=== PATIENT | female | born 1960 | race Caucasian/White ===

== ENCOUNTER 2019-05-25 19:43 | Observation (INO) ==
[2019-05-25] MEDS ORDERED: ONDANSETRON 4 MG/2 ML VIAL IV ONE (19:50)
[2019-05-25] MEDS ORDERED: LACTATED RINGERS 1,000 ML IV ONE (19:50)
[2019-05-25] MEDS ORDERED: HYDROmorphone 2 MG/ML VIAL IV SCH ×3 (20:00→23:45)
[2019-05-25 21:15] LABS: Appearance,Urine HAZY; Bacteria,Urine 0 /hpf (0); Bilirubin,Urine NEG (NEG); Color,Urine YELLOW; Culture Indicated,Urine NO; Glucose,Urine (UA) NEGATIVE (NEG); Ketones,Urine NEG (NEG); Leukocyte Esterase,Urine 500 /uL (NEG); Mucus,Urine MOD /hpf (0); Nitrate,Urine POS (NEG); Protein,Urine 100 mg/dL (NEG); Urine Blood >=1.0 mg/dL (<0.03); Urine RBC > 182 /hpf (0-1); Urine Squamous Epithelial Cell 7 /hpf (0-4); Urine Transitional Epi Cells 1 /hpf (0-2); Urine WBC > 182 /hpf (0-4)
[2019-05-25 21:19] LABS: Basophils # (Auto) 0.05 K/mcL (0.00-0.30); Basophils % (Auto) 0.6 % (0.0-2.0); Eosinophils # (Auto) 0.23 K/mcL (0.00-0.70); Granulocytes % (Auto) 58.4 % (38.0-78.0); Hematocrit 40.5 % (34.1-44.9); Hemoglobin 12.9 g/dL (11.2-15.7); Lymphocytes # (Auto) 2.29 K/mcL (1.50-4.80); Lymphocytes % (Auto) 29.4 % (15.5-49.0); Mean Cell Volume 86.2 fL (80.0-100.0); Mean Corpuscular HGB Conc 31.9 g/dL (31.0-36.0); Mean Platelet Volume 9.5 fL (7.4-10.4); Monocytes # (Auto) 0.67 K/mcL (0.10-0.90); Monocytes % (Auto) 8.6 % (1.0-12.0); Platelet Count 319 K/mcL (140-440); Red Cell Distribution Width 14.4 % (11.5-14.5); WBC 7.8 K/mcL (4.50-11.00)
[2019-05-25 21:31] LABS: ALT/SGPT 11 U/l (0-40); AST/SGOT 18 U/l (0-37); Albumin 3.6 gm/dL (3.2-5.2); Albumin/Globulin Ratio 1.2 (1.0-2.3); Alkaline Phosphatase 143 U/L (39-117); Bilirubin,Total 0.2 mg/dL (0.0-1.0); Blood Urea Nitrogen 16 mg/dl (6-20); Calcium 9.4 mg/dl (8.6-10.4); Carbon Dioxide 20 mmol/L (22-30); Chloride 103 mmol/L (96-108); Glomerular Filtration Rate 101; Glucose 144 mg/dL (70-105)
[2019-05-25] MEDS ORDERED: LEVOFLOXACIN 750 MG/150 ML BAG IV ONE (22:16)
--- NOTE | 2019-05-25 23:37 | Emergency Department Note ---
Female Urogenital HPI - General Chief complaint: Flank Pain Stated complaint: flank pain Time Seen by Provider: 05/25/19 19:49 Source: patient Mode of arrival: ambulatory Limitations: no limitations - History of Present Illness HPI Narrative: This patient has been having some right flank and right lower quadrant pain today. She does have a history of kidney stones and renal insufficiency. She has a number of admissions to the ER for adrenal insufficiency abdominal pain but she thinks this is different today. Her urine dip does show both blood and leukocytes. She is also has slight nausea and diarrhea - Related Data Home Medications Medication Instructions Recorded Confirmed erenumab-aooe 140 mg/mL 140 mg SUB-Q QMONTH 12/24/18 05/26/19 subcutaneous auto-injector omeprazole 40 mg capsule,delayed 40 mg PO TID 12/24/18 05/26/19 release predniSONE [Prednisone] 5 mg PO TID 12/25/18 05/26/19 Cyanocobalamin (Vitamin B-12) 500 mcg PO DAILY 05/26/19 05/26/19 [Vitamin B12] DULoxetine HCL [Cymbalta] 40 mg PO QDAY 05/26/19 05/26/19 Nystatin 1 applic TOPICAL BID PRN 05/26/19 05/26/19 Sertraline [Zoloft] 50 mg PO QDAY 05/26/19 05/26/19 nystatin-triamcinolone 100,000 1 applic TOPICAL BID PRN 05/26/19 05/26/19 unit/g-0.1 % topical cream rOPINIRole HCL [Requip] 1 mg PO HS 05/26/19 05/26/19 Previous Rx's Medication Instructions Recorded potassium chloride 20 mEq 40 meq PO TID #180 tab 10/21/17 tablet,extended release(part/cryst) ondansetron 4 mg disintegrating 4 mg PO TID PRN #30 tab 03/11/18 tablet albuterol sulfate 90 mcg/actuation 1 puff INHALATION Q6H PRN #18 g 04/01/19 aerosol inhaler hydrocodone 10 mg-acetaminophen 1 tab PO Q4H PRN #168 tab 05/19/19 325 mg tablet Allergies Allergy/AdvReac Type Severity Reaction Status Date / Time ketorolac [From Toradol] Allergy Intermediate Hives Verified 05/25/19 19:45 NSAIDS (Non-Steroidal AdvReac Intermediate unknown Verified 05/26/19 03:42 Anti-Inflamma lorazepam AdvReac Mild Hallucinati Verified 05/25/19 19:45 ng morphine AdvReac Mild Rash Verified 05/26/19 00:36 scopolamine AdvReac Mild Hallucinati Verified 05/25/19 19:45 ng Tizanidine AdvReac Mild Hallucinati Verified 05/25/19 19:45 ng Review of Systems All systems ED: reviewed and negative except as stated. Past Medical History - Past Medical History [facility] Narrative: Medical History (Last Updated 05/03/19 @ 13:12 by Meaghan Ryan DO) Chronic pain (Chronic) Hypertension (Chronic) Hyperlipidemia (Chronic) Diabetes mellitus type 2 with complications (Chronic) Adrenal insufficiency (Chronic) SAVI (obstructive sleep apnea) (Chronic) Chronic obstructive lung disease (Chronic) Chronic abdominal pain (Chronic) Addisons disease (Chronic) Encounter for chronic pain management (Chronic) Pain in right hip (Chronic) Lumbar spinal stenosis (Chronic) Back pain (Chronic) Family history of leukemia (Chronic) Cervical cancer (Chronic) Insomnia, persistent (Chronic) Kidney stones (Chronic) Obesity (Chronic) Obsessive compulsive disorder (Chronic) Ovarian cancer (Chronic) Diabetic peripheral neuropathy (Chronic) Vitamin D deficiency (Resolved) Hiatal hernia (Chronic 09/02/15) Abdominal pain in female (Chronic) Migraine (Chronic) Anxiety (Chronic) GERD (gastroesophageal reflux disease) (Chronic) RLS (restless legs syndrome) (Chronic) Wellness examination (Chronic) Numbness and tingling in both hands (Chronic) Syncope and collapse (Chronic) Abdominal pain, RUQ (Resolved) Altered mental status, unspecified (Resolved) Atypical chest pain (Resolved) Atypical chest pain (Resolved) Body aches (Resolved) Bronchitis (Resolved) Marianne infection (Resolved) Dehydration (Resolved) Dizzy spells (Resolved) Family history of leukemia (Resolved) General weakness (Resolved) Headache (Resolved) Headache syndrome (Resolved) Hypercholesterolemia (Resolved) Hyperuricemia (Resolved) Hypokalemia (Resolved) Hypokalemia (Resolved) Hypokalemia (Resolved) Hypomagnesemia syndrome (Resolved) Kidney stone on right side (Resolved 09/02/15) Lumbago (Resolved) Migraine (Resolved) Migraine (Resolved) Migraine (Resolved) Migraine (Resolved) Migraine (Resolved) Migraine (Resolved) Migraine (Resolved) Migraine aura, persistent, intractable (Resolved) Migraine headache (Resolved) Migraine headache (Resolved) Migraine headache (Resolved) Migraines (Resolved) Nausea and vomiting (Resolved) Near syncope (Resolved) Neck pain (Resolved) Non-cardiac chest pain (Resolved) Occipital neuralgia of left side (Resolved) Photophobia (Resolved) Postmenopausal bleeding (Resolved) Stress (Resolved) Stress disorder, acute (Resolved) Tension headache (Resolved) UTI (urinary tract infection) (Resolved) Uterine malignant neoplasm (Resolved) Abdominal pain (Inactive) Past Surgical History (Last Updated 05/03/19 @ 13:12 by Meaghan Ryan DO) History of appendectomy (Chronic) History of colonoscopy (Chronic 07/03/18) History of cystoscopy (Chronic 09/15/15) History of lumbar fusion (Chronic 01/15/18) Hx of adenoidectomy (Chronic) Hx of cholecystectomy (Chronic) Hx of esophagogastroduodenoscopy (Chronic 10/17/17) Hx of gastric bypass (Chronic) Hx of hysterectomy (Chronic) Hx of lithotripsy (Chronic 03/09/14) Hx of tonsillectomy (Chronic) H/O gastric bypass (Resolved) H/O laparoscopy (Resolved) History of carpal tunnel surgery (Resolved) History of oophorectomy (Resolved) Hx of removal of cyst (Resolved) Family History (Last Reviewed 01/26/19 @ 07:54 by Meaghan Ryan DO) brother No problems noted. father No problems noted. mother No problems noted. uncle No problems noted. Father CVA (cerebral vascular accident) Heart disease Medical history: Reports: cancer, COPD, DM, hyperlipidemia, hypertension, kidney stones, migraine, other (nonobstructing kidney stones, history of adrenal insufficiency.). Denies: CVA, myocardial infarction, renal disease, TIA Psychiatric history: Reports: anxiety, depression LOTTERY MANAGER history: Reports: non-contributory Surgical history ED: Reports: appendectomy, cholecystectomy, hysterectomy, orthopedic, other - Social History smoking status: Former smoker Alcohol use: Reports: None Drug use: Reports: none Physical Exam Limitations: no limitations General appearance: alert Head: atraumatic Eye: Present: normal appearance ENT: Present: normal exam Neck: Present: normal inspection Chest: Present: normal inspection Respiratory: Present: normal lung sounds bilaterally Cardiovascular: Present: regular rate, normal rhythm, normal heart sounds Abdominal: Present: soft, tenderness. Absent: distention, guarding, rebound Abdominal tenderness: Present: RLQ, mild Back: Present: CVA tenderness (R) Neurological: Present: alert Psychiatric: Present: normal affect Skin: Present: warm, dry Course Vital Signs Temperature 97.3 F 05/25/19 19:43 Pulse Rate 114 H 05/25/19 19:43 Respiratory Rate 20 05/25/19 19:43 Blood Pressure 167/92 05/25/19 19:43 Pulse Oximetry (%) 100 05/25/19 19:43 Temperature 97.7 F 05/26/19 03:30 Pulse Rate 95 H 05/26/19 03:30 Respiratory Rate 05/26/19 03:30 Blood Pressure 110/69 05/26/19 03:30 Pulse Oximetry (%) 99 05/26/19 03:30 Urogenital-Female - MDM Narrative Medical decision making narrative: CT scan shows a 10 mm kidney stone at the UP junction with hydronephrosis. Urinalysis is worrisome for infection as well. She has had other kidney stones treated by Dr. Britton and I talked to him and will admit her to him. We did cover her for infection with Levaquin. - Lab Data Lab results reviewed: Yes I reviewed the patient's lab results. Result diagrams: 05/25/19 20:23 05/25/19 20:23 Lab Results 05/25/19 05/25/19 05/25/19 Range/Units 20:21 20:23 20:23 WBC 7.8 (4.50-11.00) K/mcL RBC 4.70 (3.59-5.38) M/mcL Hgb 12.9 (11.2-15.7) g/dL Hct 40.5 (34.1-44.9) % MCV 86.2 (80.0-100.0) fL MCH 27.4 (26.0-34.0) pg MCHC 31.9 (31.0-36.0) g/dL RDW 14.4 (11.5-14.5) % Plt Count 319 (140-440) K/mcL MPV 9.5 (7.4-10.4) fL Gran % 58.4 (38.0-78.0) % Lymph % (Auto) 29.4 (15.5-49.0) % [place] % (Auto) 8.6 (1.0-12.0) % Eos % (Auto) 3.0 (0.0-7.0) % Baso % (Auto) 0.6 (0.0-2.0) % Gran # 4.54 (1.80-8.00) K/mcL Lymph # (Auto) 2.29 (1.50-4.80) K/mcL [place] # (Auto) 0.67 (0.10-0.90) K/mcL Eos # (Auto) 0.23 (0.00-0.70) K/mcL Baso # (Auto) 0.05 (0.00-0.30) K/mcL Sodium 138 (133-145) mmol/L Potassium 3.5 (3.3-5.1) mmol/L Chloride 103 (96-108) mmol/L Carbon Dioxide 20 L (22-30) mmol/L Anion Gap 15.0 (8-16) BUN 16 (6-20) mg/dl Creatinine 0.6 (0.6-1.1) mg/dl GFR Calculation 101 Glucose 144 H (70-105) mg/dL Calcium 9.4 (8.6-10.4) mg/dl Total Bilirubin 0.2 (0.0-1.0) mg/dL AST 18 (0-37) U/l ALT 11 (0-40) U/l Alkaline Phosphatase 143 H (39-117) U/L Total Protein 6.6 (5.9-8.4) gm/dL Albumin 3.6 (3.2-5.2) gm/dL Globulin 3.0 (2.2-3.7) gm/dL Albumin/Globulin Ratio 1.2 (1.0-2.3) Lipase 118 H (7-60) U/L Urine Color Yellow Urine Appearance Hazy Urine pH 6.0 (5.0-9.0) Ur Specific Byers 1.020 (1.000-1.035) Urine Protein 100 A (NEG) mg/dL Urine Glucose (UA) Negative (NEG) mg/dL Urine Ketones Neg (NEG) mg/dL Urine Occult Blood >=1.0 A (<0.03) mg/dL Urine Nitrate Pos A (NEG) Urine Bilirubin Neg (NEG) mg/dL Urine Urobilinogen 4.0 A (NEG) mg/dL Ur Leukocyte Esterase 500 A (NEG) /uL Urine RBC > 182 H (0-1) /hpf Urine WBC > 182 H (0-4) /hpf Ur Squamous Epith Cells 7 H (0-4) /hpf Ur Transition Epith Cell 1 (0-2) /hpf Urine Bacteria 0 (0) /hpf Urine Mucus Mod (0) /hpf Ur Culture Indicated? No - Radiology Data Radiology results reviewed: Yes I reviewed the patient's radiology results. Disposition Pt seen by PASTE WORKER/PA only: No Clinical Impression: UTI (urinary tract infection), Kidney stone on right side Disposition: Xfer As Outpt/Obs ([facility]) Condition: Good
[2019-05-26] MEDS ORDERED: oxyCODONE/APAP 10/325MG TABLET PO PRN (00:45)
[2019-05-26] MEDS: HYDROmorphone 2 MG/ML VIAL IV PRN ×8 (01:02→10:02)
[2019-05-26] MEDS: PROMETHAZINE 25 MG/ML VIAL IM PRN ×2 (02:58→10:17)
[2019-05-26] MEDS ORDERED: ONDANSETRON 4 MG/2 ML VIAL IV PRN ×3 (04:08→12:30)
[2019-05-26] MEDS ORDERED: ACETAMINOPHEN 1,000 MG/100 ML BOTTLE IV ONE ×2 (04:09→04:12)
[2019-05-26] MEDS ORDERED: ONDANSETRON 4 MG/2 ML VIAL ONE (04:10)
[2019-05-26] MEDS: DEXTROSE 5%-NS 1,000 ML IV SCH ×3 (04:20→16:21)
[2019-05-26] MEDS ORDERED: ceFAZolin 2 GM in DEXTROSE 5% IN WATER 50 ML IV SCH (07:30)
[2019-05-26] MEDS ORDERED: ALBUTEROL SULFATE 1 PUFF INHALER INH PRN (07:31)
[2019-05-26] MEDS ORDERED: ONDANSETRON 4 MG ODT TABLET PO PRN (07:31)
[2019-05-26] MEDS ORDERED: HYDROcodone/APAP 10/325MG TABLET PO PRN (07:31)
--- NOTE | 2019-05-26 07:39 | Cat Scan Report ---
History: Flank pain TECHNIQUE: The patient was imaged without oral or intravenous contrast scanning from the diaphragm to the symphysis pubis. Sagittal and coronal reformats are created. The radiation exposure was limited using dose reduction technology. FINDINGS: There are bands of scar tissue inferiorly in the lingula and right middle lobe. The heart size is normal. There is no hiatus hernia. Evaluation of abdominal organs without contrast is somewhat limited. The liver and spleen are normal in size and homogeneous. The gallbladder is been removed. The bile ducts are nondilated. No mass or inflammation are seen in the pancreas. There is a small lipid-containing nodule in the left adrenal which measures 1.0 x 1.2 cm. This is probably a benign adenoma. The right adrenal is normal. There are three calculi in the right kidney. One is in the renal pelvis and measures 1 cm. There are two within the lower pole infundibula and calyces. One measures 8 mm and the other is 10 mm in size. There is focal cortical scar posteriorly in the lower pole of the right kidney. There is no hydronephrosis in the right kidney. The left kidney is normal with no stone or hydronephrosis. No mass or cyst are identified in either kidney. The ureters are decompressed. The urinary bladder is partially filled and appears normal with no stones or intraluminal mass. The uterus has been removed and neither ovary is identified. The appendix is not visualized and may have also been removed. The bowel gas pattern is normal. The patient has had prior gastric reduction surgery. There are postsurgical changes following prior laminectomy and fusion at L3-4. IMPRESSION: Three moderate-sized nonobstructing stones in the right kidney Interpreted and Authenticated by: Carlos Germain 05/26/19
--- NOTE | 2019-05-26 08:08 | History and Physical Report ---
DATE OF ADMISSION: 05/26/2019 HISTORY OF PRESENT ILLNESS: The patient is a 58-year-old lady who I saw in December, who does have a history of stones. She has had lithotripsy and the stones were in the lower pole. The last time I saw her was in December. She did have adhesions taken down and since December has had back pain. She could not relate this to the stone because she does have chronic pain. Last night she had sudden onset of severe pain, was seen in the emergency room and a CT scan was obtained which did show an obstruction by a 1 cm stone at the UPJ. She presents now for evaluation. She has had nausea, vomiting, pain. She denies any fevers or chills. PAST MEDICAL HISTORY: Status post gastric bypass, adrenal insufficiency, chronic pain, hypertension, hyperlipidemia, diabetes type 2, obstructive sleep apnea, COPD, Adson's disease, cervical cancer, obesity, obsessive compulsive disorder, migraines, restless leg syndrome. ALLERGIES: KETOROLAC, NONSTEROIDAL ANTI-INFLAMMATORY, LORAZEPAM, MORPHINE, SCOPOLAMINE, TAZIDIME. CURRENT MEDICATIONS: 1. Albuterol. 2. Vitamin B12. 3. Duloxetine. 4. Hydrocodone. 5. Nystatin. 6. Omeprazole. 7. Potassium chloride. 8. Prednisone. 9. Sertraline. 10. Ropinirole. PAST SURGICAL HISTORY: Carpal tunnel release, revision of the ulnar nerve, gastric bypass. FAMILY HISTORY: CVA. SOCIAL HISTORY: Quit smoking, does not drink. REVIEW OF SYSTEMS: EYES: She does have blurred vision. NEUROLOGIC: No tremors. Positive migraines. ENDOCRINE: Adrenal insufficiency. MUSCULOSKELETAL: Arthritis, back pain. ENT: No deafness or dizziness. RESPIRATORY: No wheezing or coughing; does have shortness of breath. PSYCHOLOGICAL: Depression. GASTROINTESTINAL: Some nausea and vomiting. CARDIOVASCULAR: No angina, no NV. The rest of a 12-point review of systems is negative. PHYSICAL EXAMINATION: GENERAL: This is a pleasant lady in apparent distress. VITAL SIGNS: As listed per nurse's notes. NECK: Supple. Trachea is in the midline. HEART: Regular rate and rhythm. LUNGS: Clear to auscultation. No accessory muscles used. GASTROINTESTINAL: Soft. She has right CVA tenderness to the groin. GENITOURINARY: Normal female anatomy. LYMPHATIC: No adenopathy of the neck or groin. SKIN: Without rashes, lesions, or ulcers. PSYCHOLOGICAL: Alert and oriented x3. IMPRESSION: Patient with a stone at the right UPJ, which is causing her severe pain. PLAN: I will take her to the operating room and place a stent. This will relieve the pressure and she has had stents before. We then talked about lithotripsy and this was to be scheduled next week. I have gone over the procedure and complications including bleeding, infection, and pain, and she understands. A full PARQ discussion was held and we will follow up at the time of surgery. DEANA:adi Job ID: [id number] Doc ID: [id number] Jose Britton MD
[2019-05-26] MEDS ORDERED: SERTRALINE 50 MG TABLET PO SCH (09:00)
[2019-05-26] MEDS ORDERED: ERENUMAB AOOE 140 MG SUB-Q SCH (09:00)
[2019-05-26] MEDS ORDERED: OMEPRAZOLE 20 MG CAPSULE PO SCH (11:30)
[2019-05-26] MEDS ORDERED: predniSONE 5 MG TABLET PO SCH (12:00)
[2019-05-26] MEDS ORDERED: POTASSIUM CHLORIDE 20 MEQ TABLET PO SCH (12:00)
[2019-05-26] MEDS ORDERED: PROPOFOL 200 MG/20 ML VIAL IV ONE (12:09)
[2019-05-26] MEDS ORDERED: DEXAMETHASONE 10 MG/ML VIAL IV ONE (12:09)
[2019-05-26] MEDS ORDERED: LIDOCAINE HCL/PF 100 MG/5 ML SYRINGE IV ONE (12:09)
[2019-05-26] MEDS ORDERED: ONDANSETRON 4 MG/2 ML VIAL IV ONE (12:09)
[2019-05-26] MEDS ORDERED: GLYCOPYRROLATE 0.2 MG/ML VIAL IV ONE (12:09)
[2019-05-26] MEDS ORDERED: MIDAZOLAM 2 MG/2 ML VIAL IV ONE (12:09)
[2019-05-26] MEDS ORDERED: fentaNYL 100 MCG/2 ML VIAL IV ONE (12:09)
[2019-05-26] MEDS ORDERED: KETAMINE 100 MG/ML ML IV ONE (12:09)
[2019-05-26] MEDS ORDERED: diphenhydrAMINE 50 MG/ML VIAL IV PRN (12:18)
[2019-05-26] MEDS ORDERED: FLUMAZENIL 0.1 MG/ML ML IV PRN (12:18)
[2019-05-26] MEDS ORDERED: PROMETHAZINE 25 MG/ML VIAL IV PRN (12:18)
[2019-05-26] MEDS ORDERED: METOPROLOL TARTRATE 5 MG/5 ML VIAL IV PRN (12:18)
[2019-05-26] MEDS ORDERED: IPRATROPIUM/ALBUTEROL 3 ML AMPUL.NEB NEB PRN (12:18)
[2019-05-26] MEDS ORDERED: ATROPINE SULFATE 0.4 MG/ML VIAL IV PRN (12:18)
[2019-05-26] MEDS ORDERED: METHOCARBAMOL 1,000 MG/10 ML VIAL IV PRN (12:18)
[2019-05-26] MEDS ORDERED: fentaNYL 100 MCG/2 ML VIAL IV PRN (12:18)
[2019-05-26] MEDS ORDERED: NALOXONE HCL 0.4 MG/ML VIAL IV PRN (12:18)
[2019-05-26] MEDS ORDERED: MEPERIDINE 25 MG/ML SYRINGE IV PRN (12:18)
[2019-05-26] MEDS ORDERED: ePHEDrine 50 MG/ML AMPUL IV PRN (12:18)
[2019-05-26] MEDS ORDERED: LACTATED RINGERS 1,000 ML IV SCH (12:30)
[2019-05-26] MEDS ORDERED: oxyCODONE/APAP 5/325MG TABLET PO PRN (12:30)
--- NOTE | 2019-05-26 12:36 | Brief Operative Note ---
Date of procedure: 05/26/19 Pre-op diagnosis: right renal stone Post-op diagnosis: same Procedure: right ureteral stent placement Grafts/Implants: Yes (ureteral stent) Anesthesia: GLMA Findings: see note Complications: none Surgeon: Jose Britton Specimens Removed/Pathology: none sent Condition: stable Disposition: PACU
--- NOTE | 2019-05-26 12:37 | Discharge Plan ---
Discharge Plan - Patient/Caregiver Discharge Instructions Activity: increase activity as tolerated Diet: Regular Diet Additional Instructions: Lithotripsy on Saturday Prescriptions: oxyCODONE HCL/ACETAMINOPHEN [Percocet 5-325 mg Tablet] 1 each PO Q4-6HP PRN #10 tablet MDD 5 PRN Reason: Pain Level > 6 Transmission Status: Sent to [facility] - Follow up Plan Follow up with: Meaghan Ryan DO [Primary Care Provider] - Disposition: Home, Self-Care Prognosis: Good Rehab Potential: Good Overall status at discharge: patient is back to baseline
--- NOTE | 2019-05-26 12:47 | Operative Note ---
DATE OF OPERATION: 05/26/2019 PREOPERATIVE DIAGNOSIS: Right renal stone. POSTOPERATIVE DIAGNOSIS: Right renal stone. PROCEDURE: Cystoscopy, right ureteral stent placement. SURGEON: Jose Britton M.D. INDICATION: The patient is a 58-year-old lady with a known history of stones. She had sudden onset of severe right flank pain, and CT scan did show that the stones were at the UPJ. She presents now for treatment. PROCEDURE: The patient was identified and consent was signed. She was given general anesthesia, placed in lithotomy position, prepped and draped in a standard fashion. Cystourethroscopy showed normal-appearing urethra. Orifices were in their normal position. No tumors or masses were seen. We were able to pass a wire up into the kidney and this showed a good curl. A 6 x 26 stent was then passed using the Seldinger technique. This had a good curl in the kidney and the bladder. Her bladder was then drained. She was awoken and taken to recovery room in stable condition. She tolerated the procedure well. RZ:nick Job ID: [id number] Doc ID: [id number] Jose Britton MD
[2019-05-26] MEDS ORDERED: 0.9 % SODIUM CHLORIDE 10 ML SYRINGE IV SCH (14:00)
--- NOTE | 2019-05-26 15:59 | XRay Report ---
HISTORY: FINDINGS: IMPRESSION: 0.5 minutes of fluoroscopy time was used. Interpreted and Authenticated by: Carlos Germain 05/26/19
[2019-05-26] MEDS ORDERED: rOPINIRole 1 MG TABLET PO SCH (21:00)
[2019-05-27] MEDS ORDERED: DULoxetine 20 MG CAPSULE PO SCH (09:00)
[2019-05-27] MEDS ORDERED: CYANOCOBALAMIN (VITAMIN B-12) 500 MCG TABLET PO SCH (09:00)
== END 2019-05-26 16:55 | disposition home or self-care (01) ==
LOC: MEDSUR 19:43 → ED 19:43 → MEDSUR 05-26 01:07

== ENCOUNTER 2020-03-06 21:16 | Observation (INO) ==
--- NOTE | 2020-03-06 21:25 | Emergency Department Note ---
Female Urogenital HPI General Chief complaint: Urogenital-Female Stated complaint: Kidney Stones Time Seen by Provider: 03/06/20 21:22 Mode of arrival: ambulatory Limitations: no limitations History of Present Illness HPI Narrative: Narrative: 59-year-old female presents with bilateral flank pain. States she was recently diagnosed with kidney stones and has them intermittently. Had a CT scan done 3 weeks ago in [place] while visiting her sister. Followed up here with on Saturday with urologist Dr. Milligan. States she told her it may pass or may not and if she was to miserable this weekend to come to the ER. Patient states she is been taking hydrocodone at home but she cannot take the pain. Is also vomiting and cannot keep much down at all. No fever or chills. No other home treatments. No dysuria or frequency. Related Data Home Medications Medication Instructions Recorded Confirmed omeprazole 40 mg capsule,delayed 40 mg PO TID PRN 12/24/18 03/04/20 release cyanocobalamin (vitamin B-12) 500 mcg PO DAILY 05/26/19 03/04/20 ergocalciferol (vitamin D2) 50,000 unit PO WEEKLY 05/28/19 03/04/20 hydrocortisone sod succ (PF) 100 mg IJ PRN PRN 05/28/19 03/04/20 magnesium 400 mg PO DAILY 05/28/19 03/04/20 potassium chloride 40 meq PO DAILY 05/28/19 03/04/20 sumatriptan succinate [Onzetra 11 mg INTRANASAL ONCE 12/31/19 03/04/20 Xsail] duloxetine 40 mg PO QDAY 02/10/20 03/04/20 hydrocortisone 15 mg PO QDAY 02/10/20 03/04/20 ondansetron 8 mg SL Q4-6HP PRN 02/10/20 03/04/20 sumatriptan succinate 6 mg SUBCUT ONCE 02/10/20 03/04/20 Previous Rx's Medication Instructions Recorded ondansetron 4 mg disintegrating 4 mg PO TID PRN #30 tab 03/11/18 tablet nystatin-triamcinolone 100,000 1 applic TOPICAL BID #60 g 08/04/19 unit/g-0.1 % topical cream nystatin 100,000 unit/gram topical 1 applic TOPICAL BID PRN #30 g 12/14/19 powder albuterol sulfate 90 mcg/actuation 1 puff INHALATION Q6H PRN #18 g 01/05/20 aerosol inhaler phenazopyridine [Pyridium] 100 mg PO TID #7 tab 02/11/20 nitrofurantoin monohyd/m-cryst 100 mg PO BID #14 cap 02/12/20 [Macrobid] ropinirole 1 mg tablet 1 mg PO HS #90 tab 02/15/20 sertraline 100 mg tablet 100 mg PO QDAY #90 tab 02/15/20 pregabalin 75 mg capsule 75 mg PO TID #90 cap 02/16/20 hydrocodone 10 mg-acetaminophen 1 tab PO Q4-6H PRN #168 tab 02/25/20 325 mg tablet tamsulosin 0.4 mg capsule 0.8 mg PO QDAY 14 Days #28 cap 03/04/20 Allergies Allergy/AdvReac Type Severity Reaction Status Date / Time ketorolac [From Toradol] Allergy Intermediate Hives Verified 03/06/20 21:26 NSAIDS (Non-Steroidal AdvReac Intermediate Other Verified 03/06/20 21:26 Anti-Inflamma lorazepam AdvReac Mild Hallucinati Verified 03/06/20 21:26 ng morphine AdvReac Mild Rash Verified 03/06/20 21:26 scopolamine AdvReac Mild Hallucinati Verified 03/06/20 21:26 ng Tizanidine AdvReac Mild Hallucinati Verified 03/06/20 21:26 ng Review of Systems ROS ROS Narrative: Narrative: All systems ED: reviewed and negative except as stated. [facility] Narrative Patient History Narrative: Narrative: Medical/Surgical/Family History All Active Problems (Updated 03/06/20 @ 21:36 by Babs Vernon [facility]) Flank pain (Acute) Urinary tract infection (Acute) Kidney stone (Acute) Rectocele (Acute) Stress incontinence (Acute) Yeast infection of the skin (Acute) Right flank pain (Acute) Bilateral nephrolithiasis (Acute) Acute URI (Acute) Radiculopathy, cervical region (Acute) Right nephrolithiasis (Acute) History of surgery (Acute) History of ovarian cancer (Acute) History of pneumonia (Acute) Diabetes (Acute) Abdominal pain, right lower quadrant (Acute) History of tobacco use (Acute) Depression (Acute) Anxiety disorder (Acute) H/O Lipan's disease (Acute) Other cervical disc displacement, mid-cervical region, unspecified level (Acute) Fibromyalgia (Acute) Numbness (Acute) Chronic migraine without aura, intractable, without status migrainosus (Acute) Radiculopathy, lumbar region (Acute) Radiculopathy, lumbosacral region (Acute) Pain in left arm (Acute) Hand cramp (Acute) Chronic, continuous use of opioids (Acute) Chronic, continuous use of opioids (Acute) Hypokalemia (Acute) Arthritis of both hands (Acute) Abdominal pain (Acute) Nausea & vomiting (Acute) Chronic adrenal insufficiency (Acute) Thoracic outlet syndrome (Acute) Low back pain (Acute) S/P ureteral stent placement (Acute) Pelvic pain (Acute) UTI (urinary tract infection) (Acute) Flank pain, chronic (Acute) Lipan disease (Acute) Abdominal pain (Acute) Nausea & vomiting (Acute) Lower abdominal pain (Acute) Kidney stone on right side (Chronic) Right ureteral stone (Chronic) Hydronephrosis concurrent with and due to calculi of kidney and ureter (Chronic) History of adrenal insufficiency (Chronic) Chronic pain (Chronic) Hypertension (Chronic) Hyperlipidemia (Chronic) Diabetes mellitus type 2 with complications (Chronic) Adrenal insufficiency (Chronic) SAVI (obstructive sleep apnea) (Chronic) Chronic obstructive lung disease (Chronic) Chronic abdominal pain (Chronic) Addisons disease (Chronic) Encounter for chronic pain management (Chronic) Pain in right hip (Chronic) Lumbar spinal stenosis (Chronic) Back pain (Chronic) Family history of leukemia (Chronic) Cervical cancer (Chronic) Insomnia, persistent (Chronic) Kidney stones (Chronic) Obesity (Chronic) Obsessive compulsive disorder (Chronic) Ovarian cancer (Chronic) Diabetic peripheral neuropathy (Chronic) Hiatal hernia (Chronic 09/02/15) Abdominal pain in female (Chronic) Migraine (Chronic) Anxiety (Chronic) GERD (gastroesophageal reflux disease) (Chronic) RLS (restless legs syndrome) (Chronic) Medical History Abdominal pain (Resolved) Abdominal pain (Resolved) Abdominal pain, right lower quadrant (Acute) Abdominal pain, RUQ (Resolved) Addisons disease (Chronic) Adrenal crisis (Resolved) Adrenal insufficiency (Chronic) Altered mental status, unspecified (Resolved) Anxiety (Chronic) Anxiety disorder (Acute) Atypical chest pain (Resolved) Atypical chest pain (Resolved) Back pain (Chronic) Body aches (Resolved) Bronchitis (Resolved) Marianne infection (Resolved) Cervical cancer (Chronic) 1993 treated with a hysterectomy Change in mental status (Resolved) Chronic abdominal pain (Chronic) Chronic migraine without aura, intractable, without status migrainosus (Acute) Chronic obstructive lung disease (Chronic) Chronic pain (Chronic) Dehydration (Resolved) Depression (Acute) Diabetes (Acute) type 2 Diabetes mellitus type 2 with complications (Chronic) diet controlled after bypass surgery Diabetic peripheral neuropathy (Chronic) Dizzy spells (Resolved) Drug-induced nausea and vomiting (Resolved) Encounter for chronic pain management (Chronic) Family history of leukemia (Resolved) Family history of leukemia (Chronic) 2 brothers from leukemia lymphoma, sister recently diagnosed with leukemia, father with CML and Paget's disease Peripheral smear returned to normal 09/24/16, CBC WNL Fibromyalgia (Acute) General weakness (Resolved) GERD (gastroesophageal reflux disease) (Chronic) H/O Lipan's disease (Acute) Headache (Resolved) Headache syndrome (Resolved) Hematuria (Resolved) Hiatal hernia (Chronic 09/02/15) History of adrenal insufficiency (Chronic) History of ovarian cancer (Acute) History of pneumonia (Acute) History of tobacco use (Acute) Hydronephrosis concurrent with and due to calculi of kidney and ureter (Chronic) Hypercholesterolemia (Resolved) Hyperlipidemia (Chronic) Hypertension (Chronic) Hyperuricemia (Resolved) Hypokalemia (Resolved) Hypokalemia (Resolved) Hypokalemia (Resolved) Hypomagnesemia syndrome (Resolved) Insomnia, persistent (Chronic) Kidney stone on right side (Resolved 09/02/15) Kidney stone on right side (Resolved) Kidney stone on right side (Chronic) Kidney stones (Chronic) Bilateral Lumbago (Resolved) Lumbar spinal stenosis (Chronic) Migraine (Resolved) Migraine (Resolved) Migraine (Resolved) Migraine (Resolved) Migraine (Resolved) Migraine (Chronic) Migraine aura, persistent, intractable (Resolved) Migraine headache (Resolved) Nausea & vomiting (Resolved) Nausea and vomiting (Resolved) Near syncope (Resolved) Neck pain (Resolved) Non-cardiac chest pain (Resolved) Numbness (Acute) Obesity (Chronic) Obsessive compulsive disorder (Chronic) Occipital neuralgia of left side (Resolved) SAVI (obstructive sleep apnea) (Chronic) Uncertain what the other listing in this diagnosis list of organic SAVI means. Other cervical disc displacement, mid-cervical region, unspecified level (Acute) C4-5 - C6-C7 Ovarian cancer (Chronic) Pain in left arm (Acute) Pain in right hip (Chronic) Photophobia (Resolved) Postmenopausal bleeding (Resolved) Pyelonephritis (Resolved) Radiculopathy, lumbar region (Acute) Radiculopathy, lumbosacral region (Acute) Right ureteral stone (Chronic) RLS (restless legs syndrome) (Chronic) Stress (Resolved) Stress disorder, acute (Resolved) Syncope (Resolved) Syncope and collapse (Chronic) Dizziness with syncope: improved -pt with multiple w/u by neurology -pt with polypharmacy issues -encouraged her to see eye as she has some new floaters -consider return to Dr. 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 -has been evaluated at [facility] - no definitive answers -11/19/18 pt reports continued episodes, vague Tension headache (Resolved) Thoracic outlet syndrome (Acute) Will send pt to PT Uterine malignant neoplasm (Resolved) UTI (urinary tract infection) (Resolved) UTI (urinary tract infection) (Resolved) Vitamin D deficiency (Resolved) Surgical History H/O gastric bypass (Resolved) H/O laparoscopy (Resolved) lysis of adhesions, [facility] 12/2018 History of appendectomy (Chronic) History of carpal tunnel surgery (Resolved) History of colonoscopy (Chronic 07/03/18) History of cystoscopy (Chronic 09/15/15) 03/09/14 cystoscopy, ureteroscopy, laser lithotripsy w /stent placement History of lithotripsy (Resolved) History of lumbar fusion (Chronic 01/15/18) Dr Cleary History of oophorectomy (Resolved) History of surgery (Acute) URIEL #2 w/cath, w/sed 12/30/19 URIEL #1 w/cath, w/sed 12/09/19 SCS Trial T7-10 w/sed 09/25/19 LESI #3 L5-S1 w/sed 11/20/2018 Caudal KARLA #2 w/o sed 10/27/18 LESI #1 L2-3 w/sed 10/08/18 History of ureter stent (Resolved) Hx of adenoidectomy (Chronic) Hx of cholecystectomy (Chronic) Hx of esophagogastroduodenoscopy (Chronic 10/17/17) 05/30/17; 12/16/13; 08/15/17, 06/22/19 Hx of gastric bypass (Chronic) 04/2009 Hx of hysterectomy (Chronic) Hx of lithotripsy (Chronic 03/09/14) cystoscopy, ureteroscopy, laser lithotripsy w/stent placement Hx of removal of cyst (Resolved) Hx of tonsillectomy (Chronic) S/P gastric bypass (Chronic) Family History brother No problems noted. father No problems noted. mother No problems noted. uncle No problems noted. Father CVA (cerebral vascular accident) Heart disease Social History Smoking Status: Former smoker Alcohol Intake Frequency: does not drink Substance Use: does not use Exam Narrative Narrative: Narrative: General Limitations: no limitations General appearance: Present alert and grimacing Head Head: Present atraumatic and normocephalic Eye Eye: Present normal appearance; Absent conjunctival injection ENT ENT: Present mucous membranes moist Chest Chest: Present symmetric chest wall rise Respiratory Respiratory: Present normal lung sounds bilaterally; Absent respiratory distress, rales/crackles, wheezes, stridor and accessory muscle use Cardiovascular Cardiovascular: Present regular rate and normal heart sounds Adbominal Abdominal: Present soft and tenderness (bilat flank ); Absent distention and guarding Extremities Extremities: Present normal inspection and normal capillary refill Back Back: Present CVA tenderness (R) and CVA tenderness (L) Neurological Neurological: Present alert and oriented X3 Psychiatric Psychiatric: Present normal affect and normal mood Skin Skin: Present warm (WNL), dry, intact and normal color Course Course Course Narrative: @ [address] Mack to assume care due to shift change MDM MDM Narrative Medical decision making narrative: Narrative: Discharge Plan Patient/Caregiver Discharge Instructions Pt seen by NUTRITION COUNSELOR/PA only: Yes Clinical Impression: Flank pain Patient Disposition: Still a Patient Condition: Fair Follow up with: Meaghan Ryan DO [Primary Care Provider] - Prescriptions: No Action ondansetron 4 mg tablet,disintegrating 4 mg PO TID PRN (Reason: nausea and vomiting) Qty: 30 RF: 3 nystatin-triamcinolone 100,000 unit/g-0.1 % topical cream 100,000-0.1 unit/g-% cream 1 applic TOPICAL BID Qty: 60 RF: 0 nystatin 100,000 unit/gram powder 1 applic topical BID PRN (Reason: Rash) Qty: 30 RF: 2 albuterol sulfate [ProAir HFA] 90 mcg/actuation HFA aerosol inhaler 1 puff INHALATION Q6H PRN (Reason: shortness of breath) Qty: 18 RF: 1 ropinirole 1 mg tablet 1 mg PO HS Qty: 90 RF: 1 sertraline 100 mg tablet 100 mg PO QDAY Qty: 90 RF: 1 pregabalin 75 mg capsule 75 mg PO TID Qty: 90 RF: 2 hydrocodone-acetaminophen 10-325 mg tablet 1 tab PO Q4-6H PRN (Reason: pain) Qty: 168 RF: 0 cyanocobalamin (vitamin B-12) 2,500 MCG tablet 500 mcg PO DAILY RF: 0 ergocalciferol (vitamin D2) 50,000 UNIT capsule 50,000 unit PO WEEKLY RF: 0 magnesium 200 MG tablet 400 mg PO DAILY RF: 0 hydrocortisone sod succ (PF) 100 MG/2 ML recon soln 100 mg IJ PRN PRN (Reason: Adrenal Crisis) RF: 0 potassium chloride 20 MEQ tablet 40 meq PO DAILY RF: 0 Onzetra Xsail 11 mg Aerosol Powdr Breath Activated 11 mg INTRANASAL ONCE RF: 0 sumatriptan succinate 6 mg/0.5 mL Pen Injector 6 mg SUBCUT ONCE RF: 0 duloxetine 40 mg Capsule, Delayed Rel Sprinkle 40 mg PO QDAY RF: 0 ondansetron 4 MG tablet,disintegrating 8 mg SL Q4-6HP PRN (Reason: nausea or vomiting) RF: 0 hydrocortisone 10 mg Tablet 15 mg PO QDAY RF: 0 phenazopyridine [Pyridium] 100 mg tablet 100 mg PO TID Qty: 7 RF: 0 nitrofurantoin monohyd/m-cryst [Macrobid] 100 mg capsule 100 mg PO BID Qty: 14 RF: 0 omeprazole 40 mg capsule,delayed release 40 mg capsule,delayed release(DR/EC) 40 mg PO TID PRN (Reason: Acid Reflux) RF: 0 tamsulosin 0.4 mg capsule 0.8 mg PO QDAY 14 Days Qty: 28 RF: 0
[2020-03-06] MEDS ORDERED: ONDANSETRON 4 MG/2 ML VIAL IV ONE ×3 (21:30→23:22)
[2020-03-06] MEDS ORDERED: 0.9 % SODIUM CHLORIDE 1,000 ML IV ONE (21:30)
[2020-03-06 22:08] LABS: POC Creatinine 0.6 mg/dL (0.6-1.2)
[2020-03-06] MEDS: HYDROmorphone 0.5 MG/0.5 ML SYRINGE IV PRN ×2 (22:15→23:13)
[2020-03-06 22:44] LABS: Basophils # (Auto) 0.04 K/mcL (0.00-0.20); Basophils % (Auto) 0.6 % (0.0-2.0); Eosinophils # (Auto) 0.19 K/mcL (0.00-0.70); Hematocrit 35.6 % (36.0-48.0); Hemoglobin 11.2 g/dL (12.0-15.0); Lymphocytes % (Auto) 38.3 % (15.0-49.0); Mean Cell Volume 84.4 fL (80.0-100.0); Mean Corpuscular HGB Conc 31.5 g/dL (31.0-36.0); Mean Platelet Volume 9.8 fL (7.4-10.4); Monocytes % (Auto) 12.8 % (1.0-12.0); Neutrophils % (Auto) 45.3 % (38.0-78.0); Platelet Count 332 K/mcL (140-440); RBC 4.22 M/mcL (4.00-5.20); Red Cell Distribution Width 15.9 % (11.5-14.5); WBC 6.3 K/mcL (4.5-11.0)
[2020-03-06 22:53] LABS: Appearance,Urine CLEAR (Clear); Bilirubin,Urine Negative (Negative); Color,Urine YELLOW; Culture Indicated,Urine No; Glucose,Urine (UA) Negative (Negative); Ketones,Urine Negative (Negative); Leukocyte Esterase,Urine Negative /ug (Negative); Nitrate,Urine Negative (Negative); Protein,Urine Negative (Negative); Specific Gravity,Urine 1.018 (1.000-1.035); Urine Blood Negative (Negative)
[2020-03-06 23:17] LABS: ALT/SGPT 12 U/L (<40); AST/SGOT 19 U/L (<32); Albumin 3.4 gm/dL (3.2-5.2); Albumin/Globulin Ratio 1.2 (1.0-2.3); Alkaline Phosphatase 102 U/L (39-117); Bilirubin,Total 0.3 mg/dL (0.1-1.0); Blood Urea Nitrogen 16 mg/dL (6-20); Calcium 8.8 mg/dL (8.6-10.4); Carbon Dioxide 23 mmol/L (22-30); Chloride 108 mmol/L (96-108); Globulin 2.8 gm/dL (2.2-3.7); Glomerular Filtration Rate 100; Glucose 104 mg/dL (70-105)
[2020-03-06] MEDS ORDERED: cefTRIAXone 1 GM VIAL IV ONE (23:53)
[2020-03-07] MEDS ORDERED: METOCLOPRAMIDE 10 MG/2 ML VIAL IV ONE (00:03)
[2020-03-07] MEDS: HYDROmorphone 0.5 MG/0.5 ML SYRINGE IV PRN ×10 (00:24→20:12)
[2020-03-07] MEDS ORDERED: PROMETHAZINE 25 MG/ML VIAL IM PRN (00:35)
[2020-03-07] MEDS: 0.9 % SODIUM CHLORIDE 1,000 ML IV SCH ×2 (01:56→20:35)
[2020-03-07] MEDS ORDERED: FLU VACC QS2020-21(6MOS UP)/PF 60 MCG/0.5 ML SYRINGE IM ONE (10:00)
[2020-03-07] MEDS ORDERED: PNEUMOCOCCAL 23-VAL P-SAC VAC 0.5 ML SYRINGE IM ONE (10:00)
[2020-03-07] MEDS ORDERED: ONDANSETRON 4 MG/2 ML VIAL IV PRN (10:45)
[2020-03-07] MEDS ORDERED: ALBUTEROL SULFATE 200 PUFF INHALER INH PRN (10:55)
[2020-03-07] MEDS ORDERED: [UNRECOGNIZED DRUG - OTHER] IJ PRN (10:55)
--- NOTE | 2020-03-07 12:56 | Internal Med History&Physical ---
HPI History of Present Illness Patient information: Note initiated : 03/07/20 at 12:56 pm Service Date, if different from initiated Date: [] Patient: Fiona De Luna a 59 y/o F admitted on 03/07/20 for Kidney Stones. Chief Complaint: [] History of present illness: Ms. De Luna is a 59 year old F with a history of recurrent nephrolithiasis who presented to the ER due to flank pain. At per patient, patient started to have right flank pain 1 week ago. The pain is intermittent, dull in nature, 8 out of 10 in severity, radiating to right perineal area. The pain is associated with nausea and the vomiting. She also complains of loose stool x 1, bloody urine and dysuria. Otherwise patient is fine. Denies headache, dizziness, chest pain, shortness of breath, fever, or chills. No recent travel or sick contact. Review of Systems Review of systems: Positive for right flank pain, nausea, and vomiting. All other systems were reviewed and negative. PFSH PFSH All Active Problems Flank pain (Acute) Urinary tract infection (Acute) Kidney stone (Acute) Rectocele (Acute) Stress incontinence (Acute) Yeast infection of the skin (Acute) Right flank pain (Acute) Bilateral nephrolithiasis (Acute) Acute URI (Acute) Radiculopathy, cervical region (Acute) Right nephrolithiasis (Acute) History of surgery (Acute) History of ovarian cancer (Acute) History of pneumonia (Acute) Diabetes (Acute) Abdominal pain, right lower quadrant (Acute) History of tobacco use (Acute) Depression (Acute) Anxiety disorder (Acute) H/O Knox's disease (Acute) Other cervical disc displacement, mid-cervical region, unspecified level (Acute) Fibromyalgia (Acute) Numbness (Acute) Chronic migraine without aura, intractable, without status migrainosus (Acute) Radiculopathy, lumbar region (Acute) Radiculopathy, lumbosacral region (Acute) Pain in left arm (Acute) Hand cramp (Acute) Chronic, continuous use of opioids (Acute) Chronic, continuous use of opioids (Acute) Hypokalemia (Acute) Arthritis of both hands (Acute) Abdominal pain (Acute) Nausea & vomiting (Acute) Chronic adrenal insufficiency (Acute) Thoracic outlet syndrome (Acute) Low back pain (Acute) S/P ureteral stent placement (Acute) Pelvic pain (Acute) UTI (urinary tract infection) (Acute) Flank pain, chronic (Acute) Knox disease (Acute) Abdominal pain (Acute) Nausea & vomiting (Acute) Lower abdominal pain (Acute) Kidney stone on right side (Chronic) Right ureteral stone (Chronic) Hydronephrosis concurrent with and due to calculi of kidney and ureter (Chronic) History of adrenal insufficiency (Chronic) Chronic pain (Chronic) Hypertension (Chronic) Hyperlipidemia (Chronic) Diabetes mellitus type 2 with complications (Chronic) Adrenal insufficiency (Chronic) SAVI (obstructive sleep apnea) (Chronic) Chronic obstructive lung disease (Chronic) Chronic abdominal pain (Chronic) Addisons disease (Chronic) Encounter for chronic pain management (Chronic) Pain in right hip (Chronic) Lumbar spinal stenosis (Chronic) Back pain (Chronic) Family history of leukemia (Chronic) Cervical cancer (Chronic) Insomnia, persistent (Chronic) Kidney stones (Chronic) Obesity (Chronic) Obsessive compulsive disorder (Chronic) Ovarian cancer (Chronic) Diabetic peripheral neuropathy (Chronic) Hiatal hernia (Chronic 09/02/15) Abdominal pain in female (Chronic) Migraine (Chronic) Anxiety (Chronic) GERD (gastroesophageal reflux disease) (Chronic) RLS (restless legs syndrome) (Chronic) Medical History Abdominal pain (Resolved) Abdominal pain (Resolved) Abdominal pain, right lower quadrant (Acute) Abdominal pain, RUQ (Resolved) Addisons disease (Chronic) Adrenal crisis (Resolved) Adrenal insufficiency (Chronic) Altered mental status, unspecified (Resolved) Anxiety (Chronic) Anxiety disorder (Acute) Atypical chest pain (Resolved) Atypical chest pain (Resolved) Back pain (Chronic) Body aches (Resolved) Bronchitis (Resolved) Marianne infection (Resolved) Cervical cancer (Chronic) 1993 treated with a hysterectomy Change in mental status (Resolved) Chronic abdominal pain (Chronic) Chronic migraine without aura, intractable, without status migrainosus (Acute) Chronic obstructive lung disease (Chronic) Chronic pain (Chronic) Dehydration (Resolved) Depression (Acute) Diabetes (Acute) type 2 Diabetes mellitus type 2 with complications (Chronic) diet controlled after bypass surgery Diabetic peripheral neuropathy (Chronic) Dizzy spells (Resolved) Drug-induced nausea and vomiting (Resolved) Encounter for chronic pain management (Chronic) Family history of leukemia (Resolved) Family history of leukemia (Chronic) 2 brothers from leukemia lymphoma, sister recently diagnosed with leukemia, father with CML and Paget's disease Peripheral smear returned to normal 09/24/16, CBC WNL Fibromyalgia (Acute) General weakness (Resolved) GERD (gastroesophageal reflux disease) (Chronic) H/O Knox's disease (Acute) Headache (Resolved) Headache syndrome (Resolved) Hematuria (Resolved) Hiatal hernia (Chronic 09/02/15) History of adrenal insufficiency (Chronic) History of ovarian cancer (Acute) History of pneumonia (Acute) History of tobacco use (Acute) Hydronephrosis concurrent with and due to calculi of kidney and ureter (Chronic) Hypercholesterolemia (Resolved) Hyperlipidemia (Chronic) Hypertension (Chronic) Hyperuricemia (Resolved) Hypokalemia (Resolved) Hypokalemia (Resolved) Hypokalemia (Resolved) Hypomagnesemia syndrome (Resolved) Insomnia, persistent (Chronic) Kidney stone on right side (Resolved 09/02/15) Kidney stone on right side (Resolved) Kidney stone on right side (Chronic) Kidney stones (Chronic) Bilateral Lumbago (Resolved) Lumbar spinal stenosis (Chronic) Migraine (Resolved) Migraine (Resolved) Migraine (Resolved) Migraine (Resolved) Migraine (Resolved) Migraine (Chronic) Migraine aura, persistent, intractable (Resolved) Migraine headache (Resolved) Nausea & vomiting (Resolved) Nausea and vomiting (Resolved) Near syncope (Resolved) Neck pain (Resolved) Non-cardiac chest pain (Resolved) Numbness (Acute) Obesity (Chronic) Obsessive compulsive disorder (Chronic) Occipital neuralgia of left side (Resolved) SAVI (obstructive sleep apnea) (Chronic) Uncertain what the other listing in this diagnosis list of organic SAVI means. Other cervical disc displacement, mid-cervical region, unspecified level (Acute) C4-5 - C6-C7 Ovarian cancer (Chronic) Pain in left arm (Acute) Pain in right hip (Chronic) Photophobia (Resolved) Postmenopausal bleeding (Resolved) Pyelonephritis (Resolved) Radiculopathy, lumbar region (Acute) Radiculopathy, lumbosacral region (Acute) Right ureteral stone (Chronic) RLS (restless legs syndrome) (Chronic) Stress (Resolved) Stress disorder, acute (Resolved) Syncope (Resolved) Syncope and collapse (Chronic) Dizziness with syncope: improved -pt with multiple w/u by neurology -pt with polypharmacy issues -encouraged her to see eye as she has some new floaters -consider return to Dr. 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 -has been evaluated at [facility] - no definitive answers -11/19/18 pt reports continued episodes, vague Tension headache (Resolved) Thoracic outlet syndrome (Acute) Will send pt to PT Uterine malignant neoplasm (Resolved) UTI (urinary tract infection) (Resolved) UTI (urinary tract infection) (Resolved) Vitamin D deficiency (Resolved) Surgical History H/O gastric bypass (Resolved) H/O laparoscopy (Resolved) lysis of adhesions, [facility] 12/2018 History of appendectomy (Chronic) History of carpal tunnel surgery (Resolved) History of colonoscopy (Chronic 07/03/18) History of cystoscopy (Chronic 09/15/15) 03/09/14 cystoscopy, ureteroscopy, laser lithotripsy w /stent placement History of lithotripsy (Resolved) History of lumbar fusion (Chronic 01/15/18) Dr Cleary History of oophorectomy (Resolved) History of surgery (Acute) URIEL #2 w/cath, w/sed 12/30/19 URIEL #1 w/cath, w/sed 12/09/19 SCS Trial T7-10 w/sed 09/25/19 LESI #3 L5-S1 w/sed 11/20/2018 Caudal KARLA #2 w/o sed 10/27/18 LESI #1 L2-3 w/sed 10/08/18 History of ureter stent (Resolved) Hx of adenoidectomy (Chronic) Hx of cholecystectomy (Chronic) Hx of esophagogastroduodenoscopy (Chronic 10/17/17) 05/30/17; 12/16/13; 08/15/17, 06/22/19 Hx of gastric bypass (Chronic) 04/2009 Hx of hysterectomy (Chronic) Hx of lithotripsy (Chronic 03/09/14) cystoscopy, ureteroscopy, laser lithotripsy w/stent placement Hx of removal of cyst (Resolved) Hx of tonsillectomy (Chronic) S/P gastric bypass (Chronic) Family History brother No problems noted. father No problems noted. mother No problems noted. uncle No problems noted. Father CVA (cerebral vascular accident) Heart disease Social History smoking status: Former smoker quit date: 04/29/02 pack-years: 23 alcohol intake frequency: does not drink substance use type: does not use MEDS/ALLERGIES Home Medications and Allergies Home Medications Medication Instructions Recorded Confirmed Type ondansetron 4 mg disintegrating 4 mg PO TID PRN #30 tab 03/11/18 03/07/20 Rx tablet omeprazole 40 mg capsule,delayed 40 mg PO TID PRN 12/24/18 03/07/20 History release cyanocobalamin (vitamin B-12) 500 mcg PO DAILY 05/26/19 03/07/20 History ergocalciferol (vitamin D2) 50,000 unit PO WEEKLY 05/28/19 03/07/20 History hydrocortisone sod succ (PF) 100 mg IJ PRN PRN 05/28/19 03/07/20 History potassium chloride 40 meq PO DAILY 05/28/19 03/07/20 History nystatin-triamcinolone 100,000 1 applic TOPICAL BID #60 g 08/04/19 03/07/20 Rx unit/g-0.1 % topical cream nystatin 100,000 unit/gram topical 1 applic TOPICAL BID PRN #30 g 12/14/19 03/07/20 Rx powder albuterol sulfate 90 mcg/actuation 1 puff INHALATION Q6H PRN #18 g 01/05/20 03/07/20 Rx aerosol inhaler duloxetine 40 mg PO QDAY 02/10/20 03/07/20 History hydrocortisone 15 mg PO QDAY 02/10/20 03/07/20 History ropinirole 1 mg tablet 1 mg PO HS #90 tab 02/15/20 03/07/20 Rx sertraline 100 mg tablet 100 mg PO QDAY #90 tab 02/15/20 03/07/20 Rx hydrocodone 10 mg-acetaminophen 1 tab PO Q4-6H PRN #168 tab 02/25/20 03/07/20 Rx 325 mg tablet tamsulosin 0.4 mg capsule 0.8 mg PO QDAY 14 Days #28 cap 03/04/20 03/07/20 Rx Allergies Allergy/AdvReac Type Severity Reaction Status Date / Time ketorolac [From Toradol] Allergy Intermediate Hives Verified 03/06/20 21:26 NSAIDS (Non-Steroidal AdvReac Intermediate Other Verified 03/06/20 21:26 Anti-Inflamma lorazepam AdvReac Mild Hallucinati Verified 03/06/20 21:26 ng morphine AdvReac Mild Rash Verified 03/06/20 21:26 scopolamine AdvReac Mild Hallucinati Verified 03/06/20 21:26 ng Tizanidine AdvReac Mild Hallucinati Verified 03/06/20 21:26 ng EXAM Constitutional Vitals: Temp Pulse Resp BP Pulse Ox 98.2 F 74 18 105/66 95 03/07/20 12:00 03/07/20 12:00 03/07/20 12:00 03/07/20 12:00 03/07/20 12:00 Additional findings Additional findings: General -mild acute distress due to right flank pain Eyes - PERRLA, EOM intact ENT no rhinorrhea, no noticeable or palpable swelling, no redness or rash around throat or on face Neck supple, no JVD, no thyromegaly Respiratory: Lungs -clear, no wheezing or crackles. Cardiovascular - RRR no m/r/g, GI - Normal bowel sounds, no distended, soft, right CVA tenderness. Extremeties - No edema, cyanosis or clubbing Hemo/lymphatic/immune no lymphadenopathy Neurological Alert and oriented x 3, no focal neurological deficits. Psychiatry flat affect DATA Data Completed and Pending Labs: Labs from last 24 hours 03/06/20 03/06/20 03/06/20 21:43 21:43 21:30 WBC 6.3 RBC 4.22 Hgb 11.2 L Hct 35.6 L MCV 84.4 MCH 26.5 MCHC 31.5 RDW 15.9 H Plt Count 332 MPV 9.8 Neut % (Auto) 45.3 Lymph % (Auto) 38.3 [place] % (Auto) 12.8 H Eos % (Auto) 3.0 Baso % (Auto) 0.6 Lymph # (Auto) 2.40 [place] # (Auto) 0.80 Eos # (Auto) 0.19 Baso # (Auto) 0.04 Absolute Neutrophils 2.84 Sodium 141 Potassium 4.0 Chloride 108 Carbon Dioxide 23 Anion Gap 10.0 BUN 16 Creatinine 0.6 POC Creatinine 0.6 GFR Calculation 100 Glucose 104 Calcium 8.8 Total Bilirubin 0.3 AST 19 ALT 12 Alkaline Phosphatase 102 Total Protein 6.2 Albumin 3.4 Globulin 2.8 Albumin/Globulin Ratio 1.2 Urine Color Yellow Urine Appearance Clear Urine pH 6.0 Ur Specific [place] 1.018 Urine Protein Negative Urine Glucose (UA) Negative Urine Ketones Negative Urine Occult Blood Negative Urine Nitrate Negative Urine Bilirubin Negative Urine Urobilinogen 4.0 A Ur Leukocyte Esterase Negative Ur Culture Indicated? No A/P Narrative A/P Narrative: 1. Right nephrolithiasis 2. Gross hematuria mangaged by Urology Dr. Dalton. Really appreciate it. 3. Hx of ovarian cancer presumed stable f/u pcp and oncology 4. DM type with peripheral neuropathy Pt denies hx of DM Diabetic diet (NPO now for possible procedure) insulin ss 5. DVT prophylaxis: heparin 6. Code status: full. Time Spent With Patient Time: Total time spent is greater than 50% in coordination of care (as documented) at patient's floor/unit and/or counseling patient: QUALITY VTE Deep Vein Thrombosis/Pulmonary Embolism Present on Admission: No
[2020-03-07] MEDS ORDERED: DEXTROSE 50% 50 ML VIAL IV PRN (13:20)
[2020-03-07] MEDS: 0.9 % SODIUM CHLORIDE 10 ML SYRINGE IV SCH ×2 (14:00→20:37)
--- NOTE | 2020-03-07 15:41 | XRay Report ---
CLINICAL INFORMATION: nephrolithiasis? COMPARISON: 01/14/2020 FINDINGS: Moderate stool is present within the colon. The stomach, small large bowel are normal caliber, however. There are two faint calcifications overlying the inferior calyx of the right kidney both less than 4 mm. A rounded calcification in the deep true pelvis are unchanged from exams dating back to 07/24/2019 and, presumably, phleboliths IMPRESSION: Two calcifications, both less than 4 mm, overlying the inferior calyx of the right kidney which may represent nonobstructing renal stones. Moderate colonic stool. Interpreted and Authenticated by: Tone Durham 03/07/20
[2020-03-07] MEDS ORDERED: PROPOFOL 200 MG/20 ML VIAL IV ONE (17:45)
[2020-03-07] MEDS ORDERED: ceFAZolin 3 GM in DEXTROSE 5% IN WATER 50 ML IV SCH (17:45)
[2020-03-07] MEDS ORDERED: ONDANSETRON 4 MG/2 ML VIAL ONE (17:45)
[2020-03-07] MEDS ORDERED: LIDOCAINE HCL/PF 100 MG/5 ML SYRINGE IV ONE (17:45)
[2020-03-07] MEDS ORDERED: PHENYLEPHRINE 10 MG/ML VIAL ONE (17:45)
[2020-03-07] MEDS ORDERED: methylPREDNISolone SOD SUCC 125 MG/2 ML VIAL ONE (17:45)
[2020-03-07] MEDS ORDERED: fentaNYL 100 MCG/2 ML VIAL IV ONE (17:45)
[2020-03-07] MEDS ORDERED: FAMOTIDINE/PF 20 MG/2 ML VIAL IV ONE (17:45)
[2020-03-07] MEDS ORDERED: MIDAZOLAM 2 MG/2 ML VIAL ONE (17:45)
[2020-03-07] MEDS ORDERED: KETAMINE 100 MG/ML ML ONE (17:45)
--- NOTE | 2020-03-07 17:53 | Internal Medicine Consult Note ---
HPI Data of Consult Consult date: 03/07/20 Primary Care Provider: Meaghan Ryan DO Consult Narrative History of present illness: 59 y.o. female with chronic back pain and renal stones. She had persistent right flank pain and supposedly negative CT but there was a possible calcification at the right UPJ> diagnostic ureteroscopy and stent did not change much BUT when she removed the stent she had onset pain and CT scan then revealed the 2-3 mm calcification at her UVJ. She was undergoing trial passage but her pain worsened significantly and she presented to the ER. Conservative management overnight failed to control her pain. Plan for urgent uretetoscopy and possible laserlithotripsy and stent. no fevers, no chills, some nausea. no hematuria, no dysuria cc:: CC: Zee Brown Constitutional Constitutional: Present malaise; Absent chills and fever(s) Cardiovascular Cardiovascular: Absent chest pain, chest pain at rest and chest pain with activity Respiratory Respiratory: Absent cough, dyspnea on exertion and wheezing Gastrointestinal Gastrointestinal: Present as per HPI Genitourinary Genitourinary: Present as per HPI Musculoskeletal Musculoskeletal: Absent muscle weakness, numbness and tingling Integumentary Integumentary: Absent new lesions, pruritus and jaundice Neurological Neurological: Absent numbness, tingling and weakness Psychiatric Psychiatric: Absent confusion, irritability and memory loss Endocrine Endocrine: Absent palpitations, polydipsia and polyuria Hematologic/Lymphatic Hematologic/Lymphatic: Absent easy bleeding, easy bruising and lymphadenopathy Allergic/Immunologic Allergic/Immunologic: Absent tongue swelling, itchy eyes and uticaria PFSH PFSH All Active Problems Flank pain (Acute) Urinary tract infection (Acute) Kidney stone (Acute) Rectocele (Acute) Stress incontinence (Acute) Yeast infection of the skin (Acute) Right flank pain (Acute) Bilateral nephrolithiasis (Acute) Acute URI (Acute) Radiculopathy, cervical region (Acute) Right nephrolithiasis (Acute) History of surgery (Acute) History of ovarian cancer (Acute) History of pneumonia (Acute) Diabetes (Acute) Abdominal pain, right lower quadrant (Acute) History of tobacco use (Acute) Depression (Acute) Anxiety disorder (Acute) H/O Lares's disease (Acute) Other cervical disc displacement, mid-cervical region, unspecified level (Acute) Fibromyalgia (Acute) Numbness (Acute) Chronic migraine without aura, intractable, without status migrainosus (Acute) Radiculopathy, lumbar region (Acute) Radiculopathy, lumbosacral region (Acute) Pain in left arm (Acute) Hand cramp (Acute) Chronic, continuous use of opioids (Acute) Chronic, continuous use of opioids (Acute) Hypokalemia (Acute) Arthritis of both hands (Acute) Abdominal pain (Acute) Nausea & vomiting (Acute) Chronic adrenal insufficiency (Acute) Thoracic outlet syndrome (Acute) Low back pain (Acute) S/P ureteral stent placement (Acute) Pelvic pain (Acute) UTI (urinary tract infection) (Acute) Flank pain, chronic (Acute) Lares disease (Acute) Abdominal pain (Acute) Nausea & vomiting (Acute) Lower abdominal pain (Acute) Kidney stone on right side (Chronic) Right ureteral stone (Chronic) Hydronephrosis concurrent with and due to calculi of kidney and ureter (Chronic) History of adrenal insufficiency (Chronic) Chronic pain (Chronic) Hypertension (Chronic) Hyperlipidemia (Chronic) Diabetes mellitus type 2 with complications (Chronic) Adrenal insufficiency (Chronic) SAVI (obstructive sleep apnea) (Chronic) Chronic obstructive lung disease (Chronic) Chronic abdominal pain (Chronic) Addisons disease (Chronic) Encounter for chronic pain management (Chronic) Pain in right hip (Chronic) Lumbar spinal stenosis (Chronic) Back pain (Chronic) Family history of leukemia (Chronic) Cervical cancer (Chronic) Insomnia, persistent (Chronic) Kidney stones (Chronic) Obesity (Chronic) Obsessive compulsive disorder (Chronic) Ovarian cancer (Chronic) Diabetic peripheral neuropathy (Chronic) Hiatal hernia (Chronic 09/02/15) Abdominal pain in female (Chronic) Migraine (Chronic) Anxiety (Chronic) GERD (gastroesophageal reflux disease) (Chronic) RLS (restless legs syndrome) (Chronic) Medical History Abdominal pain (Resolved) Abdominal pain (Resolved) Abdominal pain, right lower quadrant (Acute) Abdominal pain, RUQ (Resolved) Addisons disease (Chronic) Adrenal crisis (Resolved) Adrenal insufficiency (Chronic) Altered mental status, unspecified (Resolved) Anxiety (Chronic) Anxiety disorder (Acute) Atypical chest pain (Resolved) Atypical chest pain (Resolved) Back pain (Chronic) Body aches (Resolved) Bronchitis (Resolved) Marianne infection (Resolved) Cervical cancer (Chronic) 1993 treated with a hysterectomy Change in mental status (Resolved) Chronic abdominal pain (Chronic) Chronic migraine without aura, intractable, without status migrainosus (Acute) Chronic obstructive lung disease (Chronic) Chronic pain (Chronic) Dehydration (Resolved) Depression (Acute) Diabetes (Acute) type 2 Diabetes mellitus type 2 with complications (Chronic) diet controlled after bypass surgery Diabetic peripheral neuropathy (Chronic) Dizzy spells (Resolved) Drug-induced nausea and vomiting (Resolved) Encounter for chronic pain management (Chronic) Family history of leukemia (Resolved) Family history of leukemia (Chronic) 2 brothers from leukemia lymphoma, sister recently diagnosed with leukemia, father with CML and Paget's disease Peripheral smear returned to normal 09/24/16, CBC WNL Fibromyalgia (Acute) General weakness (Resolved) GERD (gastroesophageal reflux disease) (Chronic) H/O Adam's disease (Acute) Headache (Resolved) Headache syndrome (Resolved) Hematuria (Resolved) Hiatal hernia (Chronic 09/02/15) History of adrenal insufficiency (Chronic) History of ovarian cancer (Acute) History of pneumonia (Acute) History of tobacco use (Acute) Hydronephrosis concurrent with and due to calculi of kidney and ureter (Chronic) Hypercholesterolemia (Resolved) Hyperlipidemia (Chronic) Hypertension (Chronic) Hyperuricemia (Resolved) Hypokalemia (Resolved) Hypokalemia (Resolved) Hypokalemia (Resolved) Hypomagnesemia syndrome (Resolved) Insomnia, persistent (Chronic) Kidney stone on right side (Resolved 09/02/15) Kidney stone on right side (Resolved) Kidney stone on right side (Chronic) Kidney stones (Chronic) Bilateral Lumbago (Resolved) Lumbar spinal stenosis (Chronic) Migraine (Resolved) Migraine (Resolved) Migraine (Resolved) Migraine (Resolved) Migraine (Resolved) Migraine (Chronic) Migraine aura, persistent, intractable (Resolved) Migraine headache (Resolved) Nausea & vomiting (Resolved) Nausea and vomiting (Resolved) Near syncope (Resolved) Neck pain (Resolved) Non-cardiac chest pain (Resolved) Numbness (Acute) Obesity (Chronic) Obsessive compulsive disorder (Chronic) Occipital neuralgia of left side (Resolved) SAVI (obstructive sleep apnea) (Chronic) Uncertain what the other listing in this diagnosis list of organic SAVI means. Other cervical disc displacement, mid-cervical region, unspecified level (Acute) C4-5 - C6-C7 Ovarian cancer (Chronic) Pain in left arm (Acute) Pain in right hip (Chronic) Photophobia (Resolved) Postmenopausal bleeding (Resolved) Pyelonephritis (Resolved) Radiculopathy, lumbar region (Acute) Radiculopathy, lumbosacral region (Acute) Right ureteral stone (Chronic) RLS (restless legs syndrome) (Chronic) Stress (Resolved) Stress disorder, acute (Resolved) Syncope (Resolved) Syncope and collapse (Chronic) Dizziness with syncope: improved -pt with multiple w/u by neurology -pt with polypharmacy issues -encouraged her to see eye as she has some new floaters -consider return to Dr. 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 -has been evaluated at [facility] - no definitive answers -11/19/18 pt reports continued episodes, vague Tension headache (Resolved) Thoracic outlet syndrome (Acute) Will send pt to PT Uterine malignant neoplasm (Resolved) UTI (urinary tract infection) (Resolved) UTI (urinary tract infection) (Resolved) Vitamin D deficiency (Resolved) Surgical History H/O gastric bypass (Resolved) H/O laparoscopy (Resolved) lysis of adhesions, Nicholas Turner 12/2018 History of appendectomy (Chronic) History of carpal tunnel surgery (Resolved) History of colonoscopy (Chronic 07/03/18) History of cystoscopy (Chronic 09/15/15) 03/09/14 cystoscopy, ureteroscopy, laser lithotripsy w /stent placement History of lithotripsy (Resolved) History of lumbar fusion (Chronic 01/15/18) Dr Cleary History of oophorectomy (Resolved) History of surgery (Acute) URIEL #2 w/cath, w/sed 12/30/19 URIEL #1 w/cath, w/sed 12/09/19 SCS Trial T7-10 w/sed 09/25/19 LESI #3 L5-S1 w/sed 11/20/2018 Caudal KARLA #2 w/o sed 10/27/18 LESI #1 L2-3 w/sed 10/08/18 History of ureter stent (Resolved) Hx of adenoidectomy (Chronic) Hx of cholecystectomy (Chronic) Hx of esophagogastroduodenoscopy (Chronic 10/17/17) 05/30/17; 12/16/13; 08/15/17, 06/22/19 Hx of gastric bypass (Chronic) 04/2009 Hx of hysterectomy (Chronic) Hx of lithotripsy (Chronic 03/09/14) cystoscopy, ureteroscopy, laser lithotripsy w/stent placement Hx of removal of cyst (Resolved) Hx of tonsillectomy (Chronic) S/P gastric bypass (Chronic) Family History brother No problems noted. father No problems noted. mother No problems noted. uncle No problems noted. Father CVA (cerebral vascular accident) Heart disease Social History smoking status: Former smoker quit date: 04/29/02 pack-years: 23 alcohol intake frequency: does not drink substance use type: does not use MEDS/ALLERGIES Home Medications and Allergies Home Medications Medication Instructions Recorded Confirmed Type ondansetron 4 mg disintegrating 4 mg PO TID PRN #30 tab 03/11/18 03/07/20 Rx tablet omeprazole 40 mg capsule,delayed 40 mg PO TID PRN 12/24/18 03/07/20 History release cyanocobalamin (vitamin B-12) 500 mcg PO DAILY 05/26/19 03/07/20 History ergocalciferol (vitamin D2) 50,000 unit PO WEEKLY 05/28/19 03/07/20 History hydrocortisone sod succ (PF) 100 mg IJ PRN PRN 05/28/19 03/07/20 History potassium chloride 40 meq PO DAILY 05/28/19 03/07/20 History nystatin-triamcinolone 100,000 1 applic TOPICAL BID #60 g 08/04/19 03/07/20 Rx unit/g-0.1 % topical cream nystatin 100,000 unit/gram topical 1 applic TOPICAL BID PRN #30 g 12/14/19 03/07/20 Rx powder albuterol sulfate 90 mcg/actuation 1 puff INHALATION Q6H PRN #18 g 01/05/20 03/07/20 Rx aerosol inhaler duloxetine 40 mg PO QDAY 02/10/20 03/07/20 History hydrocortisone 15 mg PO QDAY 02/10/20 03/07/20 History ropinirole 1 mg tablet 1 mg PO HS #90 tab 02/15/20 03/07/20 Rx sertraline 100 mg tablet 100 mg PO QDAY #90 tab 02/15/20 03/07/20 Rx hydrocodone 10 mg-acetaminophen 1 tab PO Q4-6H PRN #168 tab 02/25/20 03/07/20 Rx 325 mg tablet tamsulosin 0.4 mg capsule 0.8 mg PO QDAY 14 Days #28 cap 03/04/20 03/07/20 Rx Allergies Allergy/AdvReac Type Severity Reaction Status Date / Time ketorolac [From Toradol] Allergy Intermediate Hives Verified 03/06/20 21:26 NSAIDS (Non-Steroidal AdvReac Intermediate Other Verified 03/06/20 21:26 Anti-Inflamma lorazepam AdvReac Mild Hallucinati Verified 03/06/20 21:26 ng morphine AdvReac Mild Rash Verified 03/06/20 21:26 scopolamine AdvReac Mild Hallucinati Verified 03/06/20 21:26 ng Tizanidine AdvReac Mild Hallucinati Verified 03/06/20 21:26 ng EXAM Constitutional Vitals: Temp Pulse Resp BP Pulse Ox 98.2 F 72 16 143/95 95 03/07/20 16:00 03/07/20 16:00 03/07/20 16:00 03/07/20 16:00 03/07/20 16:00 General appearance: cooperative and mild distress Head Head exam: Present atraumatic, normal inspection and normocephalic Eye Eye exam: Present EOMI; Absent scleral icterus Respiratory Respiratory exam: Absent respiratory distress, stridor and wheezes Cardiovascular Cardiovascular exam: Present RRR GI/Abdominal GI/Abdominal exam: Present soft; Absent distended, firm, guarding, mass, rebound and rigid Neurological Exam Neurological exam: Present alert and oriented X3 Psychiatric Psychiatric exam: Present normal affect; Absent agitated and anxious DATA Data Completed and Pending Labs: Labs from last 24 hours 03/07/20 03/06/20 03/06/20 15:25 21:43 21:43 WBC 6.3 RBC 4.22 Hgb 11.2 L Hct 35.6 L MCV 84.4 MCH 26.5 MCHC 31.5 RDW 15.9 H Plt Count 332 MPV 9.8 Neut % (Auto) 45.3 Lymph % (Auto) 38.3 [place] % (Auto) 12.8 H Eos % (Auto) 3.0 Baso % (Auto) 0.6 Lymph # (Auto) 2.40 [place] # (Auto) 0.80 Eos # (Auto) 0.19 Baso # (Auto) 0.04 Absolute Neutrophils 2.84 Sodium 141 Potassium 4.0 Chloride 108 Carbon Dioxide 23 Anion Gap 10.0 BUN 16 Creatinine 0.6 POC Creatinine 0.6 GFR Calculation 100 Glucose 104 Calcium 8.8 Total Bilirubin 0.3 AST 19 ALT 12 Alkaline Phosphatase 102 Total Protein 6.2 Albumin 3.4 Globulin 2.8 Albumin/Globulin Ratio 1.2 Urine Color Urine Appearance Urine pH Ur Specific [place] Urine Protein Urine Glucose (UA) Urine Ketones Urine Occult Blood Urine Nitrate Urine Bilirubin Urine Urobilinogen Ur Leukocyte Esterase Ur Culture Indicated? SARS-CoV-2 (PCR) Pending 03/06/20 21:30 WBC RBC Hgb Hct MCV MCH MCHC RDW Plt Count MPV Neut % (Auto) Lymph % (Auto) [place] % (Auto) Eos % (Auto) Baso % (Auto) Lymph # (Auto) [place] # (Auto) Eos # (Auto) Baso # (Auto) Absolute Neutrophils Sodium Potassium Chloride Carbon Dioxide Anion Gap BUN Creatinine POC Creatinine GFR Calculation Glucose Calcium Total Bilirubin AST ALT Alkaline Phosphatase Total Protein Albumin Globulin Albumin/Globulin Ratio Urine Color Yellow Urine Appearance Clear Urine pH 6.0 Ur Specific [place] 1.018 Urine Protein Negative Urine Glucose (UA) Negative Urine Ketones Negative Urine Occult Blood Negative Urine Nitrate Negative Urine Bilirubin Negative Urine Urobilinogen 4.0 A Ur Leukocyte Esterase Negative Ur Culture Indicated? No SARS-CoV-2 (PCR) A/P Narrative A/P Narrative: right UVJ stone with significant pain that has failed conservative management plan for ureteroscopy, possible laser lithotripsy and stent placement Time Spent With Patient Time: Total time spent is greater than 50% in coordination of care (as documented) at patient's floor/unit and/or counseling patient:
[2020-03-07] MEDS ORDERED: ePHEDrine 50 MG/ML AMPUL IV PRN (18:16)
[2020-03-07] MEDS ORDERED: diphenhydrAMINE 50 MG/ML VIAL IV PRN (18:16)
[2020-03-07] MEDS ORDERED: IPRATROPIUM/ALBUTEROL 3 ML AMPUL.NEB NEB PRN (18:16)
[2020-03-07] MEDS ORDERED: MEPERIDINE 50 MG/ML INJECTION IM PRN (18:16)
[2020-03-07] MEDS ORDERED: ATROPINE SULFATE 0.4 MG/ML VIAL IV PRN (18:16)
[2020-03-07] MEDS ORDERED: METHOCARBAMOL 1,000 MG/10 ML VIAL IV PRN (18:16)
[2020-03-07] MEDS ORDERED: ACETAMINOPHEN 1,000 MG/100 ML BOTTLE IV ONE ×2 (18:16→18:52)
[2020-03-07] MEDS ORDERED: NALOXONE HCL 0.4 MG/ML VIAL IV PRN (18:16)
[2020-03-07] MEDS ORDERED: LACTATED RINGERS 1,000 ML IV SCH (18:30)
[2020-03-07 18:33] LABS: Appearance,Urine HAZY (Clear); Bilirubin,Urine Negative (Negative); Color,Urine YELLOW; Culture Indicated,Urine No; Glucose,Urine (UA) Negative (Negative); Ketones,Urine Negative (Negative); Leukocyte Esterase,Urine Negative /ug (Negative); Mucus,Urine MANY /hpf; Nitrate,Urine Negative (Negative); Protein,Urine 30 mg/dL (Negative); Specific Gravity,Urine 1.019 (1.000-1.035); Urine Blood >=1.0 mg/dL (Negative); Urine Hyaline Cast 6 /lph (0-2); Urine RBC 109 /hpf (0-1); Urine Squamous Epithelial Cell 2 /hpf (0-4); Urine WBC 2 /hpf (0-4); Urobilinogen,Urine Negative
--- NOTE | 2020-03-07 18:40 | Brief Operative Note ---
Brief Operative Note Date of procedure: 03/07/20 Pre-op diagnosis: right flank pain, ureteralvesical junction stone Post-op diagnosis: other (no UVJ stone seen, 4 mm lower pole stone) Procedure: right ureteroscopy and laser lithotripsy and stent placement Grafts/Implants: Yes (6 [place] 24 cm right ureteral stents ) Anesthesia: GETA Findings: no UVJ stone seen, 4 mm lower pole stone renal stone Complications: none Surgeon: Haile Dalton Estimated blood loss (cc): 0 Specimens Removed/Pathology: none sent Condition: stable Disposition: PACU
[2020-03-07] MEDS ORDERED: IOVERSOL 20 ML VIAL IV ONE (19:02)
[2020-03-07] MEDS ORDERED: PHENAZOPYRIDINE 200 MG TABLET PO PRN (19:13)
[2020-03-07] MEDS: INSULIN LISPRO 1 UNIT/0.01 ML UNIT SQ SCH (20:34)
[2020-03-07] MEDS: DOCUSATE SODIUM 100 MG CAPSULE PO SCH (20:34)
[2020-03-07] MEDS: HEPARIN 5,000 UNIT/ML VIAL SQ SCH (20:37)
[2020-03-07] MEDS ORDERED: rOPINIRole 1 MG TABLET PO SCH (21:00)
[2020-03-07] MEDS ORDERED: SENNOSIDES 1 TABLET PO SCH (21:00)
--- NOTE | 2020-03-07 21:16 | Operative Note ---
Operative Note Operative Note: Date of procedure: 03/07/20 Pre-op diagnosis: right flank pain, ureteralvesical junction stone Post-op diagnosis: other (no UVJ stone seen, 4 mm lower pole stone) Procedure: right ureteroscopy and laser lithotripsy and stent placement Grafts/Implants: Yes (6 [place] 24 cm right ureteral stents ) Anesthesia: GETA Findings: no UVJ stone seen, 4 mm lower pole stone renal stone Complications: none Surgeon: Haile Dalton Estimated blood loss (cc): 0 Specimens Removed/Pathology: none sent Condition: stable Disposition: PACU Informed consent was obtained preoperative antibiotics were given. Patient was taken to the operative suite placed on the table in supine position. Adequate anesthesia was initiated. Patient was then placed in the dorsolithotomy position and prepped and draped in usual sterile fashion. Given the no ureteropelvic junction stone was seen on her last efforts. But now she has a diagnosis at an outside hospital of a right ureteral vesicle junction stone and pain suggestive of renal colic, concern is that a small fragment was there and now has migrated. We began the procedure with the semirigid ureteroscope, foregoing the cystoscope or placing a wire in order not to dislodge the stone if one is present. The semirigid ureteroscope was entered into the right ureter and transversed all the way up to the proximal ureter and no calculi were visualized. A wire was then placed into the renal pelvis and the scope was removed. The flexible ureteroscope was passed over the wire into the renal pelvis in the usual Seldinger fashion. The pelvis was examined in a systematic fashion in the upper mid and lower poles were all visualized. In the lower pole there was a Amadeo's plaque of about 4 mm. The laser fiber was employed in this 4 mm lower pole Amadeo's plaque or stone was fragmented into dust. The scope was slowly withdrawn after wire was placed and the ureter was seen to be free of any calculi. A 6 [place] 24 cm double-J ureteral stent was placed in the usual sterile fashion and seemed to coil adequately in the renal pelvis under fluoroscopy and in the bladder under direct vision with good drainage of urine down the stent. This is now the second diagnostic procedure for right renal colic or back pain with the suggestion of calculi adjacent to the ureter during which we have found no evidence of ureteral stones. Patient has known chronic back issues. A stent was left in place and we will leave such there for several weeks so that they can work-up her back pain without suspicion of renal colic. Disposition Patient went to the PACU in good condition. When we saw the patient in her room post procedure she had residual right low back pain that was in her lumbar area and should not be referred pain from any urologic procedure. This likely confirms our suspicion that she has musculoskeletal issues in the calculi adjacent to the ureter are not likely to be the source of her pain.
[2020-03-07] MEDS: oxyCODONE/APAP 5/325MG TABLET PO PRN (22:13)
[2020-03-08] MEDS: INSULIN LISPRO 1 UNIT/0.01 ML UNIT SQ SCH ×3 (00:13→14:18)
[2020-03-08] MEDS: HYDROmorphone 0.5 MG/0.5 ML SYRINGE IV PRN ×6 (00:37→14:56)
--- NOTE | 2020-03-08 03:10 | XRay Report ---
CLINICAL INFORMATION: stone COMPARISON: Abdomen and pelvic CT 01/15/2020 FINDINGS: Three digital images from the OR are submitted. Retropyelogram was performed. There is minimal contrast the right upper collecting system which is grossly normal. No definite stone identified on images submitted : however, there is multiple small nonobstructing stones in the upper collecting systems on recent CT. Final film shows the proximal end of a pigtail catheter overlying the right renal pelvis IMPRESSION: Right ureteral catheter placed. Proximal and overlies the renal pelvis Interpreted and Authenticated by: Tone Durham 03/08/20
[2020-03-08] MEDS: 0.9 % SODIUM CHLORIDE 1,000 ML IV SCH ×2 (03:20→10:45)
[2020-03-08] MEDS: oxyCODONE/APAP 5/325MG TABLET PO PRN (03:39)
[2020-03-08] MEDS: 0.9 % SODIUM CHLORIDE 10 ML SYRINGE IV SCH ×2 (04:38→14:54)
[2020-03-08 07:01] LABS: Basophils # (Auto) 0.01 K/mcL (0.00-0.20); Basophils % (Auto) 0.2 % (0.0-2.0); Eosinophils # (Auto) 0 K/mcL (0.00-0.70); Eosinophils % (Auto) 0 % (0.0-7.0); Hemoglobin 10.2 g/dL (12.0-15.0); Lymphocytes % (Auto) 14.3 % (15.0-49.0); Mean Cell Volume 86.7 fL (80.0-100.0); Mean Platelet Volume 9.4 fL (7.4-10.4); Monocytes # (Auto) 0.09 K/mcL (0.10-0.90); Monocytes % (Auto) 1.6 % (1.0-12.0); Neutrophils % (Auto) 83.9 % (38.0-78.0); Platelet Count 300 K/mcL (140-440); RBC 3.92 M/mcL (4.00-5.20); Red Cell Distribution Width 15.8 % (11.5-14.5); WBC 5.6 K/mcL (4.5-11.0)
[2020-03-08] MEDS ORDERED: OMEPRAZOLE 20 MG CAPSULE PO SCH (07:30)
[2020-03-08 08:01] LABS: Estimated Average Glucose(eAG) 120 mg/dL; Hemoglobin A1C 5.8 % Hgb (4.0-6.0)
[2020-03-08 08:10] LABS: ALT/SGPT 14 U/L (<40); AST/SGOT 21 U/L (<32); Albumin 3.1 gm/dL (3.2-5.2); Albumin/Globulin Ratio 1.2 (1.0-2.3); Alkaline Phosphatase 92 U/L (39-117); Bilirubin,Total 0.3 mg/dL (0.1-1.0); Blood Urea Nitrogen 14 mg/dL (6-20); Calcium 8.7 mg/dL (8.6-10.4); Carbon Dioxide 22 mmol/L (22-30); Chloride 107 mmol/L (96-108); Globulin 2.5 gm/dL (2.2-3.7); Glomerular Filtration Rate 100; Glucose 158 mg/dL (70-105)
[2020-03-08] MEDS ORDERED: DULoxetine 20 MG CAPSULE PO SCH (09:00)
[2020-03-08] MEDS ORDERED: CYANOCOBALAMIN (VITAMIN B-12) 500 MCG TABLET PO SCH (09:00)
[2020-03-08] MEDS ORDERED: TAMSULOSIN 0.4 MG CAPSULE PO SCH (09:00)
[2020-03-08] MEDS ORDERED: SERTRALINE 100 MG TABLET PO SCH (09:00)
[2020-03-08] MEDS: HEPARIN 5,000 UNIT/ML VIAL SQ SCH (10:39)
[2020-03-08] MEDS: DOCUSATE SODIUM 100 MG CAPSULE PO SCH (10:41)
[2020-03-08] MEDS ORDERED: HYDROmorphone 1 MG/ML SYRINGE IV ONE (16:05)
--- NOTE | 2020-03-08 16:23 | Internal Med Progress Note ---
SUBJECTIVE Subjective Patient information: Note initiated : 03/08/20 at 4:13 pm Service Date, if different from initiated Date: [] Patient: Fiona De Luna 59 y/o F admitted on 03/07/20 for Kidney Stones. Patient underwent repeat ureteroscopy yesterday for likely UVJ stone on the right from CT scan done in [place]. No stone was seen nor signs obstruction. We did laser her non obstructing her renal stone to prevent future issues and a stent was placed to allow her to undergo her back pain work up. After surgery, we rounded on the patient in her room and her pain remained in her right lumbar area. no CVA tenderness. confirming her discomfort is musculoskeletal and not urologic. suspect the calcifications seen were adjacent. She wanted to go home last night, but it was late so plan was hospitalist to d/c first am. All her questions answered last night and plan was stent removal at her follow up appointment in two weeks. Today she refused to leave until seen by urology. We came over after break in clinic. She admitted then she was scared to go home as she is afraid her back will get worse. She remembers our conversation last night and the agreed upon urologic plan. she has no stent discomfort, no hematuria, voiding well. No nausea and emesis and is needing dilaudid for her back pain. Chief Complaint: [] Constitutional Vitals: Vital Signs Temp Pulse Resp BP Pulse Ox 99.5 F H 74 16 131/86 94 03/08/20 12:00 03/08/20 12:00 03/08/20 12:00 03/08/20 12:00 03/08/20 12:00 Period Temp Pulse Resp BP Sys/White Pulse Ox Last 24 Hr 97.2 F-99.5 F 61-90 10-16 99-142/58-92 82-99 Intake and Output 03/08/20 03/08/20 03/08/20 05:59 13:59 21:59 Intake Total 270 1000 Output Total 575 250 Balance -305 750 Intake & Output: Intake & Output 03/08/20 03/08/20 03/08/20 05:59 13:59 21:59 Intake Total 270 1000 Output Total 575 250 Balance -305 750 Intake: IV 1000 Sodium Chloride 0.9% 1,000 ml @ 1000 75 mls/hr IV .[id number] Rx#: [id number] Oral 270 Output: Void Amount 575 250 Other: Urine Appearance Clear Clear Urine Color [place] Urine Odor Strong Normal General appearance: cooperative and no acute distress Additional comments: no CVA tenderness, pain in lower lumbar region Neurological Exam Neurological exam: Present alert and oriented X3 Psychiatric Psychiatric exam: Present anxious (mild, about her prognosis with her back and need for follow up with neurosurgery ), normal affect and normal mood; Absent flat affect OBJ DATA Labs CBC & Chem 7: 03/08/20 05:44 03/08/20 05:44 Labs: Abnormal Lab Results 03/08/20 03/08/20 03/07/20 05:44 05:44 14:15 RBC 3.92 L Hgb 10.2 L Hct 34.0 L MCHC 30.0 L RDW 15.8 H Neut % (Auto) 83.9 H Lymph % (Auto) 14.3 L [place] % (Auto) Lymph # (Auto) 0.80 L [place] # (Auto) 0.09 L Glucose 158 H Total Protein 5.6 L Albumin 3.1 L Urine Appearance Hazy A Urine Protein 30 A Urine Occult Blood >=1.0 A Urine Urobilinogen Urine RBC 109 H Hyaline Casts 6 H Urine Mucus Many A 03/06/20 03/06/20 21:43 21:30 RBC Hgb 11.2 L Hct 35.6 L MCHC RDW 15.9 H Neut % (Auto) Lymph % (Auto) [place] % (Auto) 12.8 H Lymph # (Auto) [place] # (Auto) Glucose Total Protein Albumin Urine Appearance Urine Protein Urine Occult Blood Urine Urobilinogen 4.0 A Urine RBC Hyaline Casts Urine Mucus Meds: Medications Albuterol Sulfate (Ventolin) 1 puff INH Q6HP PRN PRN Reason: shortness of breath Cyanocobalamin (Vitamin B-12) 500 mcg PO DAILY [facility] Last Admin: 03/08/20 10:38 Dose: 500 mcg Documented by: Dextrose (Dextrose 50%) 0 ml IV UD PRN PRN Reason: Hypoglycemia Diagnostic Test (Pha) (Accu-Chek) 1 each FS Q6 [facility] Last Admin: 03/08/20 14:17 Dose: 1 each Documented by: Docusate Sodium (Colace) 100 mg PO BID [facility] Last Admin: 03/08/20 10:41 Dose: Not Given Documented by: Duloxetine HCl (Cymbalta) 40 mg PO DAILY [facility] Last Admin: 03/08/20 14:13 Dose: 40 mg Documented by: Ergocalciferol (Drisdol) 50,000 unit PO Dias@0900 [facility] Heparin Sodium (Porcine) (Heparin) 5,000 unit SQ Q12 [facility] Last Admin: 03/08/20 10:39 Dose: 5,000 unit Documented by: Hydromorphone HCl (Dilaudid) 1 mg IV Q2HP PRN; Protocol PRN Reason: Per Pain Protocol Last Admin: 03/08/20 14:56 Dose: 1 mg Documented by: Sodium Chloride (Sodium Chloride 0.9%) 1,000 mls @ 75 mls/hr IV .[id number] [facility] Last Admin: 03/08/20 10:45 Dose: 75 mls/hr Documented by: Insulin Human Lispro (Humalog) 0 unit SQ Q6 [facility]; Protocol Last Admin: 03/08/20 14:18 Dose: Not Given Documented by: Omeprazole (Prilosec) 20 mg PO ACB [facility] Last Admin: 03/08/20 10:37 Dose: 20 mg Documented by: Ondansetron HCl (Zofran) 4 mg IV Q6HP PRN PRN Reason: Nausea And Vomiting Last Admin: 03/08/20 12:55 Dose: 4 mg Documented by: Oxycodone/Acetaminophen (Percocet 5-325 Mg) 1 tab PO Q4HP PRN; Protocol PRN Reason: Per Pain Protocol Last Admin: 03/08/20 03:39 Dose: 1 tab Documented by: Phenazopyridine HCl (Pyridium) 200 mg PO TIDP PRN PRN Reason: PAINFUL URINATION Last Admin: 03/07/20 22:13 Dose: 200 mg Documented by: Promethazine HCl (Phenergan) 12.5 mg IM Q6HP PRN PRN Reason: Nausea And Vomiting Last Admin: 03/08/20 08:05 Dose: 12.5 mg Documented by: Ropinirole HCl (Requip) 1 mg PO HS [facility] Last Admin: 03/07/20 20:35 Dose: 1 mg Documented by: Senna (Senokot) 2 tab PO [facility] Last Admin: 03/07/20 20:34 Dose: 2 tab Documented by: Sertraline HCl (Zoloft) 100 mg PO QDAY [facility] Last Admin: 03/08/20 10:38 Dose: 100 mg Documented by: Sodium Chloride (Saline Flush) 10 ml IV Q8 [facility] Last Admin: 03/08/20 14:54 Dose: Not Given Documented by: Tamsulosin HCl (Flomax) 0.8 mg PO QDAY [facility] Last Admin: 03/08/20 10:37 Dose: 0.8 mg Documented by: A/P Narrative A/P Narrative: Patient delayed her discharge due to fear from her back pain -if her back pain is too severe for discharge with oral medication (no acute neurological or musculoskeletal defect) then needs transfer to facility with neurosurgery or a spinal surgeon -otherwise home with pain medication per hospitalist and urgent follow up as planned (she already sees pain clinic) Renal Colic: -suspect the stones on CT scan were artifact as two ureteroscopy has found no ureteral stones -no change in lumbar back pain with stent -leave stent in place for two weeks as to not compound her back work up as she has trouble differentiating her renal colic from her back pain -follow up two weeks stent removal -home on keflex 500 mg TID for three days Time Spent With Patient Time: Total time spent is greater than 50% in coordination of care (as documented) at patient's floor/unit and/or counseling patient: QUALITY VTE Deep Vein Thrombosis/Pulmonary Embolism Present on Admission: No
--- NOTE | 2020-03-08 16:30 | Discharge Summary ---
Discharge Provider Provider Patient information: Note initiated : 03/08/20 at 4:30 pm Service Date, if different from initiated Date: [] Patient: Fiona De Luna 59 y/o F admitted on 03/07/20 for Kidney Stones. Chief Complaint: [] Date of admission: 03/07/20 01:24 Discharge date: 03/08/20 Primary care physician: Meaghan Ryan DO Consults: 03/07/20 Consult to Physician [CONS] Stat Comment: Consulting Provider: Haile Dalton Reason For Exam: Physician to Consult 03/07/20 13:02 Consult to Physician [CONS] Routine Comment: Consulting Provider: Haile Dalton Reason For Exam: Physician to Consult Discharge Meds Discharge Medications Home Medications omeprazole 40 mg capsule,delayed release 40 mg PO TID PRN 12/24/18 [History Confirmed 03/07/20 Last Taken 03/06/20 40 mg] cyanocobalamin (vitamin B-12) 500 mcg PO DAILY 05/26/19 [History Confirmed 03/07/20 Last Taken 03/06/20 500 mcg] ergocalciferol (vitamin D2) 50,000 unit PO WEEKLY 05/28/19 [History Confirmed 03/07/20 Last Taken 03/06/20 05598 units] hydrocortisone sod succ (PF) 100 mg IJ PRN PRN 05/28/19 [History Confirmed 03/07/20 Last Taken 02/10/20] nystatin-triamcinolone 100,000 unit/g-0.1 % topical cream 1 applic TOPICAL BID #60 g 08/04/19 [Rx Confirmed 03/07/20 Last Taken 02/29/20 1 Application] nystatin 100,000 unit/gram topical powder 1 applic TOPICAL BID PRN #30 g 12/14/19 [Rx Confirmed 03/07/20 Last Taken 03/06/20 1 Application] albuterol sulfate 90 mcg/actuation aerosol inhaler 1 puff INHALATION Q6H PRN #18 g 01/05/20 [Rx Confirmed 03/07/20 Last Taken 02/10/20] duloxetine 40 mg PO QDAY 02/10/20 [History Confirmed 03/07/20 Last Taken 03/06/20 40 mg] hydrocortisone 15 mg PO QDAY 02/10/20 [History Confirmed 03/07/20 Last Taken 03/06/20 15 mg] ropinirole 1 mg tablet 1 mg PO HS #90 tab 02/15/20 [Rx Confirmed 03/07/20 Last T aken 03/06/20 1 mg] sertraline 100 mg tablet 100 mg PO QDAY #90 tab 02/15/20 [Rx Confirmed 03/07/20 Last Taken 03/06/20 100 mg] hydrocodone 10 mg-acetaminophen 325 mg tablet 1 tab PO Q4-6H PRN #168 tab 02/25/20 [Rx Confirmed 03/07/20 Last Taken 03/06/20 1 tab] tamsulosin 0.4 mg capsule 0.8 mg PO QDAY 14 Days #28 cap 03/04/20 [Rx Confirmed 03/07/20 Last Taken 03/06/20 0.8 mg] metoclopramide HCl 5 mg PO Q8HP PRN #10 tab 03/08/20 [Rx Last Taken Unknown] COURSE Hospital Course Hospital course: Ms. De Luna is a 59 year old F with a history of recurrent nephrolithiasis who presented to the ER due to flank pain. At per patient, patient started to have right flank pain 1 week ago. The pain is intermittent, dull in nature, 8 out of 10 in severity, radiating to right perineal area. The pain is associated with nausea and the vomiting. She also complains of loose stool x 1, bloody urine and dysuria. Otherwise patient is fine. Denies headache, dizziness, chest pain, shortness of breath, fever, or chills. No recent travel or sick contact. 1. Right nephrolithiasis 2. Gross hematuria mangaged by Urology Dr. Dalton. Really appreciate it. s/p right ureteroscopy and laser lithotripsy and stent placement on 03/[address] Dalton. no UVJ stone seen, 4 mm lower pole stone renal stone Hb >10 today. Repeat CBC in [address] Dalton, home on keflex 500 mg TID for three days, follow up with Dr. Dalton in two weeks stent removal 3. Hx of ovarian cancer presumed stable f/u pcp and oncology 4. DM type with peripheral neuropathy Pt denies hx of DM Diabetic diet insulin ss Hba1c 5.8 5. 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 MRI was done in [place] on 03/04/2020. I dicussed the MRI results with her neurosurgeon Dr. Lee ([phone], ) who suggested to f/u with pcp to do physical therapy. Today pt still complains of some back pain. Vital signs are stable. Hb > 10.0. Pt can walk in the [place] without any problems. Urology Dr. Dalton cleared her to home today. She will be discharged to home to f/u with pcp within 3 days, Dr. Dalton in [address] Lee in 1 week. She needs to repeat CBC in 3 days. Call PCP for medical issues. Discharge diagnosis: Right nephrolithiasis Time Spent with Patient Time attestation: Total time spent providing and/or coordinating discharge services: EXAM Constitutional Vitals: Temp Pulse Resp BP Pulse Ox 99.2 F H 78 16 145/93 94 03/08/20 16:00 03/08/20 16:00 03/08/20 16:00 03/08/20 16:00 03/08/20 12:00 Additional findings Additional findings: General -mild acute distress due to right flank pain Eyes - PERRLA, EOM intact ENT no rhinorrhea, no noticeable or palpable swelling, no redness or rash around throat or on face Neck supple, no JVD, no thyromegaly Respiratory: Lungs -clear, no wheezing or crackles. Cardiovascular - RRR no m/r/g, GI - Normal bowel sounds, no distended, soft, right CVA tenderness (improved). Extremeties - No edema, cyanosis or clubbing Hemo/lymphatic/immune no lymphadenopathy Neurological Alert and oriented x 3, no focal neurological deficits. Psychiatry flat affect Discharge Data Data Completed and Pending Labs on day of discharge: Labs from last 24 hours 03/08/20 03/08/20 03/07/20 05:44 05:44 14:15 WBC 5.6 RBC 3.92 L Hgb 10.2 L Hct 34.0 L MCV 86.7 MCH 26.0 MCHC 30.0 L RDW 15.8 H Plt Count 300 MPV 9.4 Neut % (Auto) 83.9 H Lymph % (Auto) 14.3 L [place] % (Auto) 1.6 Eos % (Auto) 0 Baso % (Auto) 0.2 Lymph # (Auto) 0.80 L [place] # (Auto) 0.09 L Eos # (Auto) 0 Baso # (Auto) 0.01 Absolute Neutrophils 4.70 Sodium 139 Potassium 4.3 Chloride 107 Carbon Dioxide 22 Anion Gap 10.0 BUN 14 Creatinine 0.6 GFR Calculation 100 Glucose 158 H Hemoglobin A1c 5.8 Estim Average Glucose 120 Calcium 8.7 Total Bilirubin 0.3 AST 21 ALT 14 Alkaline Phosphatase 92 Total Protein 5.6 L Albumin 3.1 L Globulin 2.5 Albumin/Globulin Ratio 1.2 Urine Color Yellow Urine Appearance Hazy A Urine pH 5.0 Ur Specific [place] 1.019 Urine Protein 30 A Urine Glucose (UA) Negative Urine Ketones Negative Urine Occult Blood >=1.0 A Urine Nitrate Negative Urine Bilirubin Negative Urine Urobilinogen Negative Ur Leukocyte Esterase Negative Urine RBC 109 H Urine WBC 2 Ur Squamous Epith Cells 2 Urine Bacteria None Hyaline Casts 6 H Urine Mucus Many A Ur Culture Indicated? No Preliminary micro results at discharge 03/07/20 14:15 Urine Culture - Preliminary Urine - Clean Void Mid-Stream Discharge Plan Patient/Caregiver Discharge Instructions Activity: increase activity as tolerated Diet: Consistent Carbohydrate Activity Restrictions/Additional Instructions: f/u with pcp within 3 days, Dr. Dalton in [address] Lee in 1 week. She needs to repeat CBC in 3 days. Call PCP for medical issues. Prescriptions: New metoclopramide HCl 5 mg tablet 5 mg PO Q8HP PRN (Reason: nausea and vomiting) Qty: 10 RF: 0 Continued nystatin-triamcinolone 100,000 unit/g-0.1 % topical cream 100,000-0.1 unit/g-% cream 1 applic TOPICAL BID Qty: 60 RF: 0 nystatin 100,000 unit/gram powder 1 applic topical BID PRN (Reason: Rash) Qty: 30 RF: 2 albuterol sulfate [ProAir HFA] 90 mcg/actuation HFA aerosol inhaler 1 puff INHALATION Q6H PRN (Reason: shortness of breath) Qty: 18 RF: 1 ropinirole 1 mg tablet 1 mg PO HS Qty: 90 RF: 1 sertraline 100 mg tablet 100 mg PO QDAY Qty: 90 RF: 1 hydrocodone-acetaminophen 10-325 mg tablet 1 tab PO Q4-6H PRN (Reason: pain) Qty: 168 RF: 0 cyanocobalamin (vitamin B-12) 2,500 MCG tablet 500 mcg PO DAILY RF: 0 ergocalciferol (vitamin D2) 50,000 UNIT capsule 50,000 unit PO WEEKLY RF: 0 hydrocortisone sod succ (PF) 100 MG/2 ML recon soln 100 mg IJ PRN PRN (Reason: Adrenal Crisis) RF: 0 duloxetine 40 mg Capsule, Delayed Rel Sprinkle 40 mg PO QDAY RF: 0 hydrocortisone 10 mg Tablet 15 mg PO QDAY RF: 0 omeprazole 40 mg capsule,delayed release 40 mg capsule,delayed release(DR/EC) 40 mg PO TID PRN (Reason: Acid Reflux) RF: 0 tamsulosin 0.4 mg capsule 0.8 mg PO QDAY 14 Days Qty: 28 RF: 0 Discontinued ondansetron 4 mg tablet,disintegrating 4 mg PO TID PRN (Reason: nausea and vomiting) Qty: 30 RF: 3 potassium chloride 20 MEQ tablet 40 meq PO DAILY RF: 0 Other Ambulatory Orders: Complete Blood Count (Routine) Timeframe: 3 Days Facility: [facility] - Location: Laboratory Ordered By: Zee Brown Comprehensive Metabolic Panel (Routine) Timeframe: 3 Days Facility: [facility] - Location: Laboratory Ordered By: Zee Brown Follow Up Plan Follow up with: Meaghan Ryan DO [Primary Care Provider] - 03/14/20 3:45 pm (f/u with pcp within 3 days, Dr. Dalton in [address] Lee in 1 week. She needs to repeat CBC in 3 days. Call PCP for medical issues. ) Unknown [Outside] (f/u with pcp within 3 days, Dr. Dalton in [address] Lee in 1 week. She needs to repeat CBC in 3 days. Call PCP for medical issues. ) Patient Disposition: Home, Self-Care Prognosis: Fair Discharge Orders: Discharge Order (Routine); Ordered 03/08/20 Ordered By: Zee Brown QUALITY VTE Deep Vein Thrombosis/Pulmonary Embolism Present on Admission: No
[2020-03-08] MEDS ORDERED: FLU VACC QS2020-21(6MOS UP)/PF 60 MCG/0.5 ML SYRINGE IM ONE (17:00)
[2020-03-08] MEDS ORDERED: PNEUMOCOCCAL 23-VAL P-SAC VAC 0.5 ML SYRINGE IM ONE (17:00)
[2020-03-13] MEDS ORDERED: ERGOCALCIFEROL (VITAMIN D2) 50,000 UNIT CAPSULE PO SCH (09:00)
== END 2020-03-08 18:13 | disposition home or self-care (01) ==
LOC: MEDSUR 21:16 → ED 21:16 → MEDSUR 03-07 01:36
PROVIDERS: ADMIT Internal Medicine; ATTEND Internal Medicine

== ENCOUNTER 2021-09-05 11:13 | Inpatient (IN) ==
[2021-09-05] MEDS ORDERED: IOPAMIDOL 100 ML BOTTLE IV ONE ×2 (11:14→17:08)
[2021-09-05] MEDS ORDERED: ONDANSETRON 4 MG/2 ML VIAL IV ONE (11:55)
[2021-09-05] MEDS ORDERED: HYDROCORTISONE SOD SUCC 100 MG VIAL IV ONE ×2 (11:55→13:13)
[2021-09-05] MEDS ORDERED: MECLIZINE 25 MG TABLET PO ONE (11:55)
[2021-09-05] MEDS ORDERED: 0.9 % SODIUM CHLORIDE 1,000 ML IV ONE (11:55)
[2021-09-05] MEDS ORDERED: ACETAMINOPHEN 500 MG TABLET PO ONE (13:04)
[2021-09-05 13:07] LABS: POC Calcium, Ionized 1.06 (1.16-1.32); POC Creatinine 0.7 (0.6-1.2); POC Potassium 3.2 (3.3-5.1)
[2021-09-05 13:46] LABS: Basophils # (Auto) 0.03 K/mcL (0.00-0.30); Basophils % (Auto) 0.2 % (0.0-2.0); Eosinophils # (Auto) 0.09 K/mcL (0.00-0.70); Eosinophils % (Auto) 0.5 % (0.0-7.0); Hematocrit 33.6 % (34.1-44.9); Hemoglobin 10.1 g/dL (11.2-15.7); Lymphocytes # (Auto) 0.81 K/mcL (1.50-4.80); Lymphocytes % (Auto) 4.2 % (15.5-49.0); Mean Cell Volume 76.7 fL (80.0-100.0); Mean Corpuscular HGB Conc 30.1 g/dL (31.0-36.0); Mean Platelet Volume 9.4 fL (7.4-10.4); Monocytes # (Auto) 1.26 K/mcL (0.10-0.90); Monocytes % (Auto) 6.5 % (1.0-12.0); Neutrophils % (Auto) 88.6 % (38.0-78.0); Platelet Count 337 K/mcL (140-440); RBC 4.38 M/mcL (3.59-5.38); WBC 19.4 K/mcL (4.5-11.0)
[2021-09-05 14:07] LABS: ALT/SGPT 9 U/L (<40); AST/SGOT 14 U/L (<32); Albumin 2.9 gm/dL (3.2-5.2); Albumin/Globulin Ratio 0.9 (1.0-2.3); Alkaline Phosphatase 85 U/L (39-117); Bilirubin,Total 0.3 mg/dL (0.1-1.0); Blood Urea Nitrogen 14 mg/dL (6-20); Carbon Dioxide 22 mmol/L (22-30); Chloride 105 mmol/L (96-108); Globulin 3.1 gm/dL (2.2-3.7); Glomerular Filtration Rate 94; Glucose 79 mg/dL (70-105)
[2021-09-05] MEDS ORDERED: HYDROcodone/APAP 10/325MG TABLET PO ONE (14:21)
[2021-09-05 14:37] LABS: Appearance,Urine CLOUDY (Clear); Bacteria,Urine MOD /hpf (0); Bilirubin,Urine Negative (Negative); Color,Urine YELLOW; Culture Indicated,Urine yes; Glucose,Urine (UA) Negative (Negative); Ketones,Urine Negative (Negative); Leukocyte Esterase,Urine 25 /uL (Negative); Mucus,Urine MOD /hpf; Nitrate,Urine Negative (Negative); Protein,Urine Negative (Negative); Specific Gravity,Urine 1.019 (1.000-1.035); Urine Blood >=1.0 mg/dL (Negative); Urine Hyaline Cast 7 /lph (0-2); Urine RBC > 182 /hpf (0-1); Urine Squamous Epithelial Cell 4 /hpf (0-4); Urine Transitional Epi Cells < 1 /hpf (0-2); Urine WBC 15 /hpf (0-4); Urobilinogen,Urine Negative
[2021-09-05] MEDS ORDERED: cefTRIAXone 1 GM VIAL IV ONE (14:45)
--- NOTE | 2021-09-05 14:45 | Cat Scan Report ---
History: New onset dizziness TECHNIQUE: The brain was imaged without contrast in axial plane at 2.5 mm intervals. The radiation exposure was limited using dose reduction technology. FINDINGS: There is subtle inhomogeneity in the white matter within the centrum semiovale, most apparent in the left frontal lobe. The prior MRI done on 03/24/21 revealed the presence of a few small scattered white matter lesions in the frontal and parietal lobes bilaterally. This has remained relatively stable. No infarct is detected. There is no hemorrhage or mass effect. There is no atrophy or abnormal extra-axial fluid collection. The ventricles are normal in size. Visualized sinuses are clear. Mastoids are normally aerated. No abnormality is seen in the posterior fossa or brainstem. IMPRESSION: Stable nonspecific mild white matter disease in the frontal and parietal lobes. No acute abnormality and no change since 03/24/21 Interpreted and Authenticated by: Carlos Germain 09/05/21
--- NOTE | 2021-09-05 15:13 | XRay Report ---
HISTORY: Sepsis, fever FINDINGS: There is a moderate-sized alveolar infiltrate in the left lung from the hilum down to the diaphragm. The right lung is clear. These are new finding since prior x-ray done on 08/14/21. No pleural effusion is present. The heart size is normal. There is no congestive heart failure. A dextroscoliotic curvature is present in the right mid thorax. IMPRESSION: Moderate pneumonia in the lower two thirds of the left lung Interpreted and Authenticated by: Carlos Germain 09/05/21
[2021-09-05] MEDS ORDERED: HYDROmorphone 0.5 MG/0.5 ML SYRINGE IV ONE (15:17)
--- NOTE | 2021-09-05 15:21 | Cat Scan Report ---
History: Dizziness, vertigo, sepsis TECHNIQUE: Following injection of intravenous nonionic contrast, arterial phase images were acquired from the aortic arch to the top of the head. Sagittal, coronal and curved linear reformatted images were obtained. Venous phase images of the brain were then acquired in axial plane at 2.5 mm. Sagittal and coronal reformats were created. The radiation exposure was limited using dose reduction technology Findings: The aortic arch and great vessels arising from the aorta are normal in caliber. There is minimal plaque formation in the arch. The common carotids, carotid bifurcations, internal and external carotids are normal. There is no plaque formation in the carotid bifurcations and there is no dissection or thrombosis. Vertebral arteries are normal. The left is slightly larger than the right. Intracranial arterial circulation is normal. There are large bilateral patent posterior communicating arteries. The left posterior communicating artery provides most of blood flow to the left posterior cerebral. This is a normal variant. The intracranial vessels are otherwise normal without evidence of stenosis, thrombosis or vasculitis. There is no aneurysm or vascular malformation. No enhancing lesion is present within the brain. There is no evidence of a mass or abscess. Patient has a patchy distribution of alveolar infiltrates in the visualized portion of the left upper lobe and lingula. There are postsurgical changes following discectomy and fusion at C5-6. There is a metal spacer in the C4-5 disc space. No soft tissue mass or abscess are seen in the neck. IMPRESSION: Normal CT angiogram of the head and neck. Pneumonia in the left lung Dr. Trevino was called with the report Interpreted and Authenticated by: Carlos Germain 09/05/21
[2021-09-05] MEDS: AZITHROMYCIN 500 MG in DEXTROSE 5% IN WATER 250 ML IV SCH (15:35)
--- NOTE | 2021-09-05 15:51 | Ultrasound Report ---
History: Hematuria, sepsis The right kidney measures 4.7 x 5.8 x 11.9 cm and the left measures 5.6 x 6.2 x 12.6 cm. No mass, cyst, calculus or hydronephrosis are present in either kidney. There is no perinephric abscess or abnormal fluid collection. Doppler shows normal blood flow to both kidneys. There is also flow of urine through both ureters into the bladder. The bladder contained 53 cc of urine. IMPRESSION: Normal kidneys Interpreted and Authenticated by: Carlos Germain 09/05/21
--- NOTE | 2021-09-05 16:13 | Internal Med History&Physical ---
HPI History of Present Illness Patient information: Note initiated : 09/05/21 at 4:04 pm Service Date, if different from initiated Date: [] Patient: Fiona De Luna a 60 y/o F admitted on for dizziness. Chief Complaint: [Weakness] Chief complaint: Abdominal pain, weakness, lethargy History of present illness: Ms. De Luna is a 60 year old F with a past medical history significant for hypertension, hyperlipidemia, COPD, Adam's disease, lumbar spinal stenosis, and cervical CA who presents to the hospital with 48-hour history of lethargy. The patient states that she was with her kids on Saturday for Mother's Day when she began to feel as though she was "drunk."She cannot specifically describe her symptoms. She denied any productive cough, shortness of breath, but did have pelvic/abdominal discomfort. The following day on Saturday, she continued to feel inebriated. The daughter came over and suggested that she go to the ER for further management and evaluation. On presentation, she was hemodynamically stable however was found to be slightly hypotensive with a blood pressure of 99/55. Of note, she was also found to be febrile with a temp of 103.2. Her O2 sat was 92% on ambient air. The patient's labs were concerning for a white blood cell count of 19.4, lactic acid of 2.4. Chest x-ray was concerning for moderate pneumonia in the lower two thirds of the left lung. The hospital service was asked admit the patient for further management and evaluation of her sepsis. Review of Systems All systems: reviewed and no additional remarkable complaints except as stated Constitutional Constitutional: Present as per HPI EENT Eyes: Present as per HPI; Absent blurry vision Cardiovascular Cardiovascular: Present as per HPI; Absent chest pain, dyspnea, dyspnea on exertion, leg edema or palpatations Respiratory Respiratory: Present as per HPI; Absent cough, dyspnea, dyspnea on exertion, wheezing or stridor Gastrointestinal Gastrointestinal: Present as per HPI and abdominal pain; Absent diarrhea, dysphagia, hematemesis, melena, nausea or vomiting Musculoskeletal Musculoskeletal: Present as per HPI; Absent joint swelling, limited range of motion, muscle cramps, muscle weakness or myalgias Integumentary Integumentary: Present as per HPI; Absent erythema, new lesions, rash or wounds Neurological Neurological: Present as per HPI; Absent abnormal gait, behavioral changes, focal weakness, headache(s), loss of vision, numbness, sensory deficit or syncope Endocrine Endocrine: Absent change in body appearance, fatigue or heat intolerance Hematologic/Lymphatic Hematologic/Lymphatic: Present as per HPI PFSH PFSH All Active Problems (Updated 09/05/21 @ 16:10 by Shauna Steel MD) CAP (community acquired pneumonia) (Acute) Sepsis (Acute) Cervical cancer (Chronic) Insomnia, persistent (Chronic) Obsessive compulsive disorder (Chronic) Ovarian cancer (Chronic) RLS (restless legs syndrome) (Chronic) Hiatal hernia (Chronic 09/02/15) GERD (gastroesophageal reflux disease) (Chronic) Hypertension (Chronic) Hyperlipidemia (Chronic) Family history of leukemia (Chronic) SAVI (obstructive sleep apnea) (Chronic) Lumbar spinal stenosis (Chronic) [place] disease (Chronic) Thoracic outlet syndrome (Chronic) Arthritis of both hands (Chronic) Chronic, continuous use of opioids (Chronic) Radiculopathy, lumbosacral region (Chronic) Chronic migraine without aura, intractable, without status migrainosus (Chronic) Numbness (Chronic) Fibromyalgia (Chronic) Other cervical disc displacement, mid-cervical region, unspecified level (Chronic) Anxiety disorder (Chronic) Depression (Chronic) History of tobacco use (Chronic) History of ovarian cancer (Chronic) History of surgery (Chronic) Stress incontinence (Chronic) Rectocele (Chronic) Rheumatoid arthritis (Chronic) Recurrent nephrolithiasis (Chronic) Diabetes mellitus with neuropathy (Chronic) Chronic back pain (Chronic) Morbid obesity (Chronic) Kidney stone on left side (Chronic) Chronic pain (Chronic) Nausea and vomiting (Chronic) Bilateral kidney stones (Chronic) Syncope and collapse (Chronic) Chronic abdominal pain (Chronic) Radiculopathy, cervical region (Chronic) Hematuria (Chronic) Gastric bypass status for obesity (Chronic) Sclerosing mesenteritis (Chronic) Nausea & vomiting (Chronic) Left ureteral stone (Chronic) Bilateral flank pain (Chronic) Medicare annual wellness visit, subsequent (Chronic) Left flank pain (Chronic) Dysuria (Chronic) UTI (urinary tract infection) (Chronic) Abdominal pain (Chronic) Acute streptococcal pharyngitis (Chronic) Hypokalemia (Chronic) Cough (Chronic) Incidental lung nodule (Chronic) Opioid overdose (Chronic) Polypharmacy (Chronic) Left knee pain (Chronic) Edema of left lower extremity (Chronic) Acute adrenal insufficiency (Chronic) Causalgia (Chronic) Sleep apnea (Chronic) Asthma (Chronic) Hx of Adam's disease (Chronic) CRPS (complex regional pain syndrome) type I of lower limb (Acute) Hypokalemia (Acute) Left leg pain (Acute) CRPS (complex regional pain syndrome type I) (Acute) CRPS 1, lower extremity (Acute) Complex regional pain syndrome type 2 of left lower extremity (Acute) Medical History Abdominal pain Abdominal pain Abdominal pain, RUQ Acute adrenal insufficiency Acute streptococcal pharyngitis [place] disease Adrenal crisis Altered mental status, unspecified Anxiety disorder Arthritis of both hands Asthma Atypical chest pain Bilateral flank pain Bilateral kidney stones Body aches Bronchitis [place] infection Causalgia Cervical cancer 1993 treated with a hysterectomy Change in mental status Chronic abdominal pain Chronic abdominal pain Chronic back pain Chronic migraine without aura, intractable, without status migrainosus Chronic obstructive lung disease Chronic pain Chronic, continuous use of opioids Complex regional pain syndrome type 2 of left lower extremity Cough CRPS (complex regional pain syndrome) type I of lower limb Dehydration Depression Diabetes mellitus with neuropathy Diet controlled status post gastric bypass Dizzy spells Drug-induced nausea and vomiting Dysuria Edema of left lower extremity Family history of leukemia 2 brothers from leukemia lymphoma, sister recently diagnosed with leukemia, father with CML and Paget's disease Peripheral smear returned to normal 09/24/16, CBC WNL Fibromyalgia General weakness GERD (gastroesophageal reflux disease) Headache syndrome Hematuria Hematuria Hiatal hernia (09/02/15) History of ovarian cancer History of pneumonia History of tobacco use Hospital discharge follow-up Hx of [place]'s disease Hydronephrosis concurrent with and due to calculi of kidney and ureter Hypercholesterolemia Hyperlipidemia Hypertension Hyperuricemia Hypokalemia Hypokalemia Hypomagnesemia syndrome Incidental lung nodule Insomnia, persistent Kidney stone on left side Kidney stone on right side (09/02/15) Left flank pain Left knee pain Left ureteral stone Lumbago Lumbar spinal stenosis Medicare annual wellness visit, subsequent Migraine aura, persistent, intractable Migraine headache Morbid obesity Nausea & vomiting Nausea & vomiting Nausea and vomiting Near syncope Neck pain Non-cardiac chest pain Numbness Obsessive compulsive disorder Occipital neuralgia of left side Opioid overdose SAVI (obstructive sleep apnea) Uncertain what the other listing in this diagnosis list of organic SAVI means. Other cervical disc displacement, mid-cervical region, unspecified level C4-5 - C6-C7 Ovarian cancer Pain in left arm Photophobia Polypharmacy Postmenopausal bleeding Pyelonephritis Radiculopathy, cervical region Radiculopathy, lumbosacral region Rectocele Recurrent nephrolithiasis Rheumatoid arthritis Right ureteral stone RLS (restless legs syndrome) Sclerosing mesenteritis Sleep apnea Small bowel obstruction Stress disorder, acute Stress incontinence Syncope and collapse Dizziness with syncope: improved -pt with multiple w/u by neurology -pt with polypharmacy issues -encouraged her to see eye as she has some new floaters -consider return to Dr. 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 - no definitive answers -11/19/18 pt reports continued episodes, vague Syncope and collapse Tension headache Thoracic outlet syndrome Will send pt to PT Uterine malignant neoplasm UTI (urinary tract infection) UTI (urinary tract infection) Vitamin D deficiency Surgical History Gastric bypass status for obesity H/O gastric bypass (~2009) H/O laparoscopy lysis of adhesions, [facility] 12/2018 History of appendectomy (~1985) History of carpal tunnel surgery 2014, 2010 History of colonoscopy (07/03/18) History of cystoscopy (09/15/15) 03/09/14 cystoscopy, ureteroscopy, laser lithotripsy w /stent placement History of lumbar fusion (01/15/18) Dr Cleary History of oophorectomy (~1996) History of surgery URIEL #2 w/cath, w/sed 12/30/19 URIEL #1 w/cath, w/sed 12/09/19 SCS Trial T7-10 w/sed 09/25/19 LESI #3 L5-S1 w/sed 11/20/2018 Caudal KARLA #2 w/o sed 10/27/18 LESI #1 L2-3 w/sed 10/08/18 History of surgery Left ulnar nerve transposition History of total knee arthroplasty Left History of ureter stent Hx of adenoidectomy Hx of cholecystectomy (~2010) Hx of esophagogastroduodenoscopy (10/17/17) 05/30/17; 12/16/13; 08/15/17, 06/22/19 Hx of gastric bypass 04/2009 Hx of hysterectomy (~1994) Partial hysterectomy Hx of lithotripsy (03/09/14) cystoscopy, ureteroscopy, laser lithotripsy w/stent placement Hx of removal of cyst Hx of tonsillectomy Family History brother Colon cancer father No problems noted. mother Small cell carcinoma Cancer uncle No problems noted. Father CVA (cerebral vascular accident) Heart disease Rheumatoid arthritis Cancer Heart attack Gout Family/Other Leukemia Cancer Sibling Anemia Sibling Sister Myeloma Social History marital status: occupational status: retired smoking status: Former smoker quit date: 04/29/02 pack-years: 23 alcohol intake frequency: does not drink substance use type: does not use MEDS/ALLERGIES Home Medications and Allergies Home Medications Medication Instructions Recorded Confirmed Type eptinezumab-jjmr 100 mg/mL 100 mg IV .[id number] 09/23/20 08/28/21 History intravenous solution (Vyepti) sertraline 100 mg tablet 100 mg PO QDAY #90 tab 12/28/20 08/28/21 Rx hydrocortisone 10 mg tablet 25 mg PO DAILY@1400 tab 02/10/21 08/28/21 History ascorbic acid (vitamin C) 500 mg 1,000 mg PO QDAY 05/05/21 08/28/21 History tablet magnesium 200 mg tablet 200 mg PO QDAY 05/05/21 08/28/21 History ropinirole 1 mg tablet 1 mg PO QHS 05/05/21 08/28/21 History docusate sodium 100 mg capsule 100 mg PO BID #60 cap 05/15/21 08/28/21 Rx naloxone 4 mg/actuation nasal 4 mg INTRANASAL Q2M PRN #1 ea 05/20/21 08/28/21 Rx spray (Narcan) alendronate 70 mg tablet 70 mg PO QWEEK #24 tab 05/24/21 08/28/21 Rx multivitamin with iron 1 tab PO QDAY 05/24/21 08/28/21 History potassium chloride 20 mEq 40 meq PO QAMCC tab 05/24/21 08/28/21 History tablet,extended release nystatin 100,000 unit/gram topical 1 applic TOPICAL BIDP PRN #60 g 06/20/21 08/28/21 Rx powder duloxetine 60 mg capsule,delayed 60 mg PO QDAY #90 cap 07/05/21 08/28/21 Rx release gabapentin 600 mg tablet 1,800 mg PO TID 07/12/21 08/28/21 History mirtazapine 15 mg tablet 15 mg PO QHS #90 tab 07/14/21 08/28/21 Rx aspirin 81 mg tablet,delayed 81 mg PO DAILY 08/03/21 08/28/21 History release (Ecotrin Low Strength) ondansetron 4 mg disintegrating 4 mg PO Q8H PRN #10 tab 08/03/21 08/28/21 Rx tablet hydrocodone 10 mg-acetaminophen 1 tab PO Q4HP PRN #168 tab 08/15/21 08/28/21 Rx 325 mg tablet omeprazole 40 mg capsule,delayed 40 mg PO BIDAC PRN 08/22/21 08/28/21 History release Allergies Allergy/AdvReac Type Severity Reaction Status Date / Time ketorolac [From Toradol] Allergy Mild Hives Verified 08/24/21 09:40 lorazepam AdvReac Intermediate Hallucinati Verified 08/24/21 09:40 ng NSAIDS (Non-Steroidal AdvReac Intermediate Other Verified 08/24/21 09:40 Anti-Inflamma scopolamine AdvReac Intermediate Hallucinati Verified 08/24/21 09:40 ng Tizanidine AdvReac Intermediate Hallucinati Verified 08/24/21 09:40 ng EXAM Constitutional Vitals: Temp Pulse Resp BP Pulse Ox 103.2 F H 88 19 99/55 93 09/05/21 13:03 09/05/21 15:37 09/05/21 11:14 09/05/21 15:37 09/05/21 15:37 General appearance: average body habitus Head Head exam: Present atraumatic, normal inspection and normocephalic Eye Eye exam: Present EOMI, normal appearance and PERRL; Absent conjunctival injection ENT ENT exam: Present normal exam; Absent mucous membranes dry Neck Neck exam: Present full ROM; Absent lymphadenopathy Respiratory Respiratory exam: Present normal respiratory exam and CTAB; Absent decreased breath sounds, respiratory distress or wheezes Cardiovascular Cardiovascular exam: Present normal rate and rhythm and RRR; Absent JVD GI/Abdominal GI/Abdominal exam: Present normal bowel sounds, soft and tenderness; Absent diminished bowel sounds, distended, guarding, mass or rebound Neurological Exam Neurological exam: Present alert, CN II-XII intact and oriented X3 Psychiatric Psychiatric exam: Present normal affect and normal mood Skin Skin exam: Present intact and warm; Absent erythema, pallor, petechiae or rash DATA Data Completed and Pending Labs: Labs from last 24 hours 09/05/21 09/05/21 09/05/21 16:01 13:30 13:08 WBC RBC Hgb Hct POC Hct MCV MCH MCHC RDW Plt Count MPV Neut % (Auto) Lymph % (Auto) [place] % (Auto) Eos % (Auto) Baso % (Auto) Lymph # (Auto) [place] # (Auto) Eos # (Auto) Baso # (Auto) Absolute Neutrophils VBG Lactic Acid Pending POC Sodium Sodium POC Potassium Potassium POC Chloride Chloride Carbon Dioxide POC Total CO2 Anion Gap POC BUN BUN Creatinine POC Creatinine GFR Calculation Glucose POC Glucose Calcium POC WB Ioniz Calcium Total Bilirubin AST ALT Alkaline Phosphatase Total Protein Albumin Globulin Albumin/Globulin Ratio Random Cortisol Urine Color Yellow Urine Appearance Cloudy A Urine pH 5.0 Ur Specific [place] 1.019 Urine Protein Negative Urine Glucose (UA) Negative Urine Ketones Negative Urine Occult Blood >=1.0 A Urine Nitrate Negative Urine Bilirubin Negative Urine Urobilinogen Negative Ur Leukocyte Esterase 25 A Urine RBC > 182 H Urine WBC 15 H Ur Squamous Epith Cells 4 Ur Transition Epith Cell < 1 Urine Bacteria Mod A Hyaline Casts 7 H Urine Mucus Mod A Ur Culture Indicated? yes POC Troponin I 0 L 09/05/21 09/05/21 09/05/21 13:05 12:23 12:23 WBC RBC Hgb Hct POC Hct 31.0 L MCV MCH MCHC RDW Plt Count MPV Neut % (Auto) Lymph % (Auto) [place] % (Auto) Eos % (Auto) Baso % (Auto) Lymph # (Auto) [place] # (Auto) Eos # (Auto) Baso # (Auto) Absolute Neutrophils VBG Lactic Acid 2.4 H POC Sodium 139 Sodium 138 POC Potassium 3.2 L Potassium 3.1 L POC Chloride 105 Chloride 105 Carbon Dioxide 22 POC Total CO2 23.0 Anion Gap 11.0 POC BUN 15 BUN 14 Creatinine 0.7 POC Creatinine 0.7 GFR Calculation 94 Glucose 79 POC Glucose 100 Calcium 8.0 L POC WB Ioniz Calcium 1.06 L Total Bilirubin 0.3 AST 14 ALT 9 Alkaline Phosphatase 85 Total Protein 6.0 Albumin 2.9 L Globulin 3.1 Albumin/Globulin Ratio 0.9 L Random Cortisol 19.8 Urine Color Urine Appearance Urine pH Ur Specific [place] Urine Protein Urine Glucose (UA) Urine Ketones Urine Occult Blood Urine Nitrate Urine Bilirubin Urine Urobilinogen Ur Leukocyte Esterase Urine RBC Urine WBC Ur Squamous Epith Cells Ur Transition Epith Cell Urine Bacteria Hyaline Casts Urine Mucus Ur Culture Indicated? POC Troponin I 09/05/21 12:23 WBC 19.4 H RBC 4.38 Hgb 10.1 L Hct 33.6 L POC Hct MCV 76.7 L MCH 23.1 L MCHC 30.1 L RDW 20.0 H Plt Count 337 MPV 9.4 Neut % (Auto) 88.6 H Lymph % (Auto) 4.2 L [place] % (Auto) 6.5 Eos % (Auto) 0.5 Baso % (Auto) 0.2 Lymph # (Auto) 0.81 L [place] # (Auto) 1.26 H Eos # (Auto) 0.09 Baso # (Auto) 0.03 Absolute Neutrophils 17.19 H VBG Lactic Acid POC Sodium Sodium POC Potassium Potassium POC Chloride Chloride Carbon Dioxide POC Total CO2 Anion Gap POC BUN BUN Creatinine POC Creatinine GFR Calculation Glucose POC Glucose Calcium POC WB Ioniz Calcium Total Bilirubin AST ALT Alkaline Phosphatase Total Protein Albumin Globulin Albumin/Globulin Ratio Random Cortisol Urine Color Urine Appearance Urine pH Ur Specific [place] Urine Protein Urine Glucose (UA) Urine Ketones Urine Occult Blood Urine Nitrate Urine Bilirubin Urine Urobilinogen Ur Leukocyte Esterase Urine RBC Urine WBC Ur Squamous Epith Cells Ur Transition Epith Cell Urine Bacteria Hyaline Casts Urine Mucus Ur Culture Indicated? POC Troponin I A/P Assessment and plan (1) [place] disease: Status: Chronic (2) Lumbar spinal stenosis: Status: Chronic (3) Chronic, continuous use of opioids: Status: Chronic (4) Sepsis: Status: Acute (5) CAP (community acquired pneumonia): Status: Acute Narrative A/P Narrative: The patient presents with a septic picture likely source being respiratory however intra-abdominal or intrapelvic pathology is yet to be ruled out. She will be covered with ceftriaxone and azithromycin. She will be aggressively treated with IV fluids. She does have a history of [place]'s disease and she was prescribed Solu-Cortef in the ER which will be continued. We will await CT abdomen pelvis, blood cultures, urine culture. We will hold any home antihypertensives. In the setting of sepsis and altered mental status, will also hold any sedatives from home. Time Spent With Patient Time: Total time spent is greater than 50% in coordination of care (as documented) at patient's floor/unit and/or counseling patient: Total time spent with greater than 50% in coordination of care (as documented) at patient's floor/unit and/or counseling patient:: 50 - 70 minutes
[2021-09-05] MEDS ORDERED: ACETAMINOPHEN 325 MG TABLET PO PRN (16:30)
[2021-09-05] MEDS ORDERED: ONDANSETRON 4 MG/2 ML VIAL IV PRN (16:30)
--- NOTE | 2021-09-05 17:59 | Cat Scan Report ---
History: Sepsis, pneumonia, abdominal pain, hematuria TECHNIQUE: Following injection of intravenous nonionic contrast the patient was imaged from the thoracic inlet through the symphysis pubis. Sagittal and coronal reformats were created. The radiation exposure was limited using dose reduction technology. The patient had previously received intravenous contrast on the same date for a head and neck CT angiogram. FINDINGS: Chest: There is a patchy distribution of alveolar infiltrates throughout the left lung with the greatest involvement in left lower lobe and inferior lingula. There is also mild involvement in the left upper lobe. The right lung is clear, without evidence of pneumonia. No pleural effusion is present. There are no abnormally enlarged lymph nodes. The heart is normal in size and contour. Aorta is normal in caliber. There is minimal atherosclerosis in the chest. Abdomen and pelvis: The liver and spleen are normal in size and homogeneous. There are a few varices located inferior to the spleen. The gallbladder has been removed. The bile ducts are nondilated. There are normal postoperative changes following prior gastric reduction surgery with a Kiersten-en-Y. There is no associated inflammation or obstruction. Normal amount of stool is present in the distal large bowel. There is no diverticulitis, colitis or obstruction. There is focal cortical scar posteriorly in the lower portion of the right kidney. There is contrast within the collecting system following the preceding CT scan. This could potentially obscure small knee stones. However, no obvious stone is seen in either kidney. There is no evidence of a mass, cyst or hydronephrosis in either kidney. Urinary bladder is opacified and normally distended. Uterus has been removed. Neither ovary is identified. There is no ascites. No abscess or inflammation are present within the abdomen or pelvis. There are stable postsurgical changes following fusion in the lumbar spine. IMPRESSION: Moderate pneumonia in the left lung, unchanged from the preceding chest x-ray. Normal abdomen and pelvis without evidence of inflammation or bowel obstruction Interpreted and Authenticated by: Carlos Germain 09/05/21
--- NOTE | 2021-09-05 18:36 | Emergency Department Note ---
HPI General Chief complaint: Dizziness Stated complaint: dizziness Time Seen by Provider: 09/05/21 11:16 Source: patient Mode of arrival: ambulatory Limitations: no limitations History of Present Illness HPI Narrative: Narrative: 60-year-old female with history of [place] disease presents for evaluation of feeling of general illness that she gets when she has illness provoking addisonian crisis. She has not had any known ill contacts. She reports she started feeling generally unwell yesterday, went to the emergency department at [facility], had lab work-up which was normal and was discharged. She has increased yesterday to her sick dose of steroids. She reports that today she had worsening vertigo which is constant, worsening lower abdominal pain. She has had multiple CT scans in the past and she reports she does get these symptoms when her Adam flares up. She was found to be febrile on arrival which is not normal for her. She has not had significant cough or congestion. She has not had chest pain or significant shortness of breath. She has not had dysuria. She has not had a change in frequency. She has not had any constipation or diarrhea. She has been nauseous with this. She has been tolerating p.o. Related Data Home Medications Medication Instructions Recorded Confirmed eptinezumab-jjmr 100 mg/mL 100 mg IV .[id number] 09/23/20 09/05/21 intravenous solution (Vyepti) hydrocortisone 10 mg tablet 25 mg PO BID tab 02/10/21 09/05/21 ascorbic acid (vitamin C) 500 mg 1,000 mg PO QDAY 05/05/21 09/05/21 tablet magnesium 200 mg tablet 200 mg PO QDAY 05/05/21 09/05/21 ropinirole 1 mg tablet 1 mg PO QHS 05/05/21 09/05/21 multivitamin with iron 1 tab PO QDAY 05/24/21 09/05/21 potassium chloride 20 mEq 40 meq PO QAMCC tab 05/24/21 09/05/21 tablet,extended release gabapentin 600 mg tablet 1,800 mg PO TID 07/12/21 09/05/21 aspirin 81 mg tablet,delayed 81 mg PO DAILY 08/03/21 09/05/21 release (Ecotrin Low Strength) omeprazole 40 mg capsule,delayed 40 mg PO BIDAC PRN 08/22/21 09/05/21 release Previous Rx's Medication Instructions Recorded sertraline 100 mg tablet 100 mg PO QDAY #90 tab 12/28/20 docusate sodium 100 mg capsule 100 mg PO BID #60 cap 05/15/21 nystatin 100,000 unit/gram topical 1 applic TOPICAL BIDP PRN #60 g 06/20/21 powder duloxetine 60 mg capsule,delayed 60 mg PO QDAY #90 cap 07/05/21 release mirtazapine 15 mg tablet 15 mg PO QHS #90 tab 07/14/21 ondansetron 4 mg disintegrating 4 mg PO Q8H PRN #10 tab 08/03/21 tablet hydrocodone 10 mg-acetaminophen 1 tab PO Q4HP PRN #168 tab 08/15/21 325 mg tablet Allergies Allergy/AdvReac Type Severity Reaction Status Date / Time ketorolac [From Toradol] Allergy Mild Hives Verified 08/24/21 09:40 lorazepam AdvReac Intermediate Hallucinati Verified 08/24/21 09:40 ng NSAIDS (Non-Steroidal AdvReac Intermediate Other Verified 08/24/21 09:40 Anti-Inflamma scopolamine AdvReac Intermediate Hallucinati Verified 08/24/21 09:40 ng Tizanidine AdvReac Intermediate Hallucinati Verified 08/24/21 09:40 ng Review of Systems ROS ROS Narrative: Narrative: All systems ED: reviewed and negative except as stated. PFSH Narrative Patient History Narrative: Narrative: Medical/Surgical/Family History All Active Problems (Updated 09/05/21 @ 19:01 by Elieser Trevino DO) Sepsis (Acute) Pneumonia (Acute) Addisonian crisis (Acute) Vertigo (Acute) CAP (community acquired pneumonia) (Acute) Sepsis (Acute) Cervical cancer (Chronic) Insomnia, persistent (Chronic) Obsessive compulsive disorder (Chronic) Ovarian cancer (Chronic) RLS (restless legs syndrome) (Chronic) Hiatal hernia (Chronic 09/02/15) GERD (gastroesophageal reflux disease) (Chronic) Hypertension (Chronic) Hyperlipidemia (Chronic) Family history of leukemia (Chronic) SAVI (obstructive sleep apnea) (Chronic) Lumbar spinal stenosis (Chronic) [place] disease (Chronic) Thoracic outlet syndrome (Chronic) Arthritis of both hands (Chronic) Chronic, continuous use of opioids (Chronic) Radiculopathy, lumbosacral region (Chronic) Chronic migraine without aura, intractable, without status migrainosus (Chronic) Numbness (Chronic) Fibromyalgia (Chronic) Other cervical disc displacement, mid-cervical region, unspecified level (Chronic) Anxiety disorder (Chronic) Depression (Chronic) History of tobacco use (Chronic) History of ovarian cancer (Chronic) History of surgery (Chronic) Stress incontinence (Chronic) Rectocele (Chronic) Rheumatoid arthritis (Chronic) Recurrent nephrolithiasis (Chronic) Diabetes mellitus with neuropathy (Chronic) Chronic back pain (Chronic) Morbid obesity (Chronic) Kidney stone on left side (Chronic) Chronic pain (Chronic) Nausea and vomiting (Chronic) Bilateral kidney stones (Chronic) Syncope and collapse (Chronic) Chronic abdominal pain (Chronic) Radiculopathy, cervical region (Chronic) Hematuria (Chronic) Gastric bypass status for obesity (Chronic) Sclerosing mesenteritis (Chronic) Nausea & vomiting (Chronic) Left ureteral stone (Chronic) Bilateral flank pain (Chronic) Medicare annual wellness visit, subsequent (Chronic) Left flank pain (Chronic) Dysuria (Chronic) UTI (urinary tract infection) (Chronic) Abdominal pain (Chronic) Acute streptococcal pharyngitis (Chronic) Hypokalemia (Chronic) Cough (Chronic) Incidental lung nodule (Chronic) Opioid overdose (Chronic) Polypharmacy (Chronic) Left knee pain (Chronic) Edema of left lower extremity (Chronic) Acute adrenal insufficiency (Chronic) Causalgia (Chronic) Sleep apnea (Chronic) Asthma (Chronic) Hx of [place] disease (Chronic) CRPS (complex regional pain syndrome) type I of lower limb (Acute) Hypokalemia (Acute) Left leg pain (Acute) CRPS (complex regional pain syndrome type I) (Acute) CRPS 1, lower extremity (Acute) Complex regional pain syndrome type 2 of left lower extremity (Acute) Medical History Abdominal pain Abdominal pain Abdominal pain, RUQ Acute adrenal insufficiency Acute streptococcal pharyngitis [place] disease Adrenal crisis Altered mental status, unspecified Anxiety disorder Arthritis of both hands Asthma Atypical chest pain Bilateral flank pain Bilateral kidney stones Body aches Bronchitis [place] infection Causalgia Cervical cancer 1993 treated with a hysterectomy Change in mental status Chronic abdominal pain Chronic abdominal pain Chronic back pain Chronic migraine without aura, intractable, without status migrainosus Chronic obstructive lung disease Chronic pain Chronic, continuous use of opioids Complex regional pain syndrome type 2 of left lower extremity Cough CRPS (complex regional pain syndrome) type I of lower limb Dehydration Depression Diabetes mellitus with neuropathy Diet controlled status post gastric bypass Dizzy spells Drug-induced nausea and vomiting Dysuria Edema of left lower extremity Family history of leukemia 2 brothers from leukemia lymphoma, sister recently diagnosed with leukemia, father with CML and Paget's disease Peripheral smear returned to normal 09/24/16, CBC WNL Fibromyalgia General weakness GERD (gastroesophageal reflux disease) Headache syndrome Hematuria Hematuria Hiatal hernia (09/02/15) History of ovarian cancer History of pneumonia History of tobacco use Hospital discharge follow-up Hx of [place] disease Hydronephrosis concurrent with and due to calculi of kidney and ureter Hypercholesterolemia Hyperlipidemia Hypertension Hyperuricemia Hypokalemia Hypokalemia Hypomagnesemia syndrome Incidental lung nodule Insomnia, persistent Kidney stone on left side Kidney stone on right side (09/02/15) Left flank pain Left knee pain Left ureteral stone Lumbago Lumbar spinal stenosis Medicare annual wellness visit, subsequent Migraine aura, persistent, intractable Migraine headache Morbid obesity Nausea & vomiting Nausea & vomiting Nausea and vomiting Near syncope Neck pain Non-cardiac chest pain Numbness Obsessive compulsive disorder Occipital neuralgia of left side Opioid overdose SAVI (obstructive sleep apnea) Uncertain what the other listing in this diagnosis list of organic SAVI means. Other cervical disc displacement, mid-cervical region, unspecified level C4-5 - C6-C7 Ovarian cancer Pain in left arm Photophobia Polypharmacy Postmenopausal bleeding Pyelonephritis Radiculopathy, cervical region Radiculopathy, lumbosacral region Rectocele Recurrent nephrolithiasis Rheumatoid arthritis Right ureteral stone RLS (restless legs syndrome) Sclerosing mesenteritis Sleep apnea Small bowel obstruction Stress disorder, acute Stress incontinence Syncope and collapse Dizziness with syncope: improved -pt with multiple w/u by neurology -pt with polypharmacy issues -encouraged her to see eye as she has some new floaters -consider return to Dr. 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 -has been evaluated at [facility] - no definitive answers -11/19/18 pt reports continued episodes, vague Syncope and collapse Tension headache Thoracic outlet syndrome Will send pt to PT Uterine malignant neoplasm UTI (urinary tract infection) UTI (urinary tract infection) Vitamin D deficiency Surgical History Gastric bypass status for obesity H/O gastric bypass (~2009) H/O laparoscopy lysis of adhesions, [facility] 12/2018 History of appendectomy (~1985) History of carpal tunnel surgery 2014, 2010 History of colonoscopy (07/03/18) History of cystoscopy (09/15/15) 03/09/14 cystoscopy, ureteroscopy, laser lithotripsy w /stent placement History of lumbar fusion (01/15/18) Dr Cleary History of oophorectomy (~1996) History of surgery URIEL #2 w/cath, w/sed 12/30/19 URIEL #1 w/cath, w/sed 12/09/19 SCS Trial T7-10 w/sed 09/25/19 LESI #3 L5-S1 w/sed 11/20/2018 Caudal KARLA #2 w/o sed 10/27/18 LESI #1 L2-3 w/sed 10/08/18 History of surgery Left ulnar nerve transposition History of total knee arthroplasty Left History of ureter stent Hx of adenoidectomy Hx of cholecystectomy (~2010) Hx of esophagogastroduodenoscopy (10/17/17) 05/30/17; 12/16/13; 08/15/17, 06/22/19 Hx of gastric bypass 04/2009 Hx of hysterectomy (~1994) Partial hysterectomy Hx of lithotripsy (03/09/14) cystoscopy, ureteroscopy, laser lithotripsy w/stent placement Hx of removal of cyst Hx of tonsillectomy Family History brother Colon cancer father No problems noted. mother Small cell carcinoma Cancer uncle No problems noted. Father CVA (cerebral vascular accident) Heart disease Rheumatoid arthritis Cancer Heart attack Gout Family/Other Leukemia Cancer Sibling Anemia Sibling Sister Myeloma Social History Smoking Status: Former smoker Alcohol Intake Frequency: does not drink Substance Use: does not use Exam Narrative Narrative: Narrative: General Limitations: no limitations General appearance: Present alert, in no apparent distress and obese Head Head: Present atraumatic and normocephalic Eye Eye: Present normal appearance and EOMI ENT ENT: Present normal exam and mucous membranes moist Neck Neck: Present normal inspection and full ROM Chest Chest: Present normal inspection and symmetric chest wall rise Respiratory Respiratory: Present normal lung sounds bilaterally; Absent respiratory distress Cardiovascular Cardiovascular: Present regular rate and normal rhythm Adbominal Abdominal: Present soft; Absent tenderness Extremities Extremities: Present normal inspection and full ROM Back Back: Present normal inspection and full ROM Neurological Neurological: Present alert, oriented X3, CN II-XII intact, normal gait and other (NIH stroke scale 0, negative test of skew, normal [id number] and [id number]); Absent motor sensory deficit Psychiatric Psychiatric: Present normal affect and normal mood Skin Skin: Present warm (WNL), dry and normal color Course Vital Signs Vital signs: Vital Signs Temperature 101.6 F H 09/05/21 11:14 Pulse Rate 124 H 09/05/21 11:14 Respiratory Rate 19 09/05/21 11:14 Blood Pressure 113/53 09/05/21 11:14 Pulse Oximetry (%) 92 09/05/21 11:14 Temperature 96.6 F L 09/05/21 18:14 Pulse Rate 95 H 09/05/21 18:14 Respiratory Rate 19 09/05/21 11:14 Blood Pressure 115/60 09/05/21 18:14 Pulse Oximetry (%) 93 09/05/21 18:14 [facility] MDM Narrative Medical decision making narrative: Narrative: Patient with addisonian crisis secondary to sepsis with pneumonia, possible UTI. She is given IV fluids, IV antibiotics, 100 mg of Solu-Cortef. Initial presentation with vertigo, has not had neuroimaging so CT/CTA obtained. This is a consistent symptom with her [place], so overall low suspicion for acute intracerebral process and I do not believe she needs MRI. She is also not in a acute phase with symptoms for approximately 24 to 48 hours so tPA not indicated. She does have chronic abdominal pain and this is exacerbated, so initial consi deration was given to CT of the abdomen and pelvis in spite of multiple prior CTs, but was deferred pending looking for source and pneumonia seen on x-ray so canceled. She was admitted for further care Her labs reviewed from yesterday which were normal, but does not appear that there is any imaging at that time Medical Records Medical records reviewed: Yes I reviewed the patient's medical records. Lab Data Lab results reviewed: Yes I reviewed the patient's lab results. Result diagrams: 09/05/21 12:23 09/05/21 12:23 Labs: Lab Results 09/05/21 09/05/21 09/05/21 Range/Units 12:23 12:23 12:23 WBC 19.4 H (4.5-11.0) K/mcL RBC 4.38 (3.59-5.38) M/mcL Hgb 10.1 L (11.2-15.7) g/dL Hct 33.6 L (34.1-44.9) % POC Hct (36-48) MCV 76.7 L (80.0-100.0) fL MCH 23.1 L (26.0-34.0) pg MCHC 30.1 L (31.0-36.0) g/dL RDW 20.0 H (11.5-14.5) % Plt Count 337 (140-440) K/mcL MPV 9.4 (7.4-10.4) fL Neut % (Auto) 88.6 H (38.0-78.0) % Lymph % (Auto) 4.2 L (15.5-49.0) % [place] % (Auto) 6.5 (1.0-12.0) % Eos % (Auto) 0.5 (0.0-7.0) % Baso % (Auto) 0.2 (0.0-2.0) % Lymph # (Auto) 0.81 L (1.50-4.80) K/mcL [place] # (Auto) 1.26 H (0.10-0.90) K/mcL Eos # (Auto) 0.09 (0.00-0.70) K/mcL Baso # (Auto) 0.03 (0.00-0.30) K/mcL Absolute Neutrophils 17.19 H (1.80-8.00) K/mcL VBG Lactic Acid 2.4 H (0.5-2.0) mmol/L POC Sodium (133-145) Sodium 138 (133-145) mmol/L POC Potassium (3.3-5.1) Potassium 3.1 L (3.3-5.1) mmol/L POC Chloride (96-108) Chloride 105 (96-108) mmol/L Carbon Dioxide 22 (22-30) mmol/L POC Total CO2 (22-30) Anion Gap 11.0 (8.0-16.0) POC BUN (6-20) BUN 14 (6-20) mg/dL Creatinine 0.7 (0.6-1.1) mg/dL POC Creatinine (0.6-1.2) GFR Calculation 94 Glucose 79 (70-105) mg/dL POC Glucose (70-105) Calcium 8.0 L (8.6-10.4) mg/dL POC WB Ioniz Calcium (1.16-1.32) Total Bilirubin 0.3 (0.1-1.0) mg/dL AST 14 (<32) U/L ALT 9 (<40) U/L Alkaline Phosphatase 85 (39-117) U/L Total Protein 6.0 (5.9-8.4) gm/dL Albumin 2.9 L (3.2-5.2) gm/dL Globulin 3.1 (2.2-3.7) gm/dL Albumin/Globulin Ratio 0.9 L (1.0-2.3) Random Cortisol 19.8 ug/dL Urine Color Urine Appearance (Clear) Urine pH (5.0-9.0) Ur Specific [place] (1.000-1.035) Urine Protein (Negative) mg/dL Urine Glucose (UA) (Negative) mg/dL Urine Ketones (Negative) mg/dL Urine Occult Blood (Negative) mg/dL Urine Nitrate (Negative) Urine Bilirubin (Negative) mg/dL Urine Urobilinogen mg/dL Ur Leukocyte Esterase (Negative) /uL Urine RBC (0-1) /hpf Urine WBC (0-4) /hpf Ur Squamous Epith Cells (0-4) /hpf Ur Transition Epith Cell (0-2) /hpf Urine Bacteria (0) /hpf Hyaline Casts (0-2) /lph Urine Mucus (None) /hpf Ur Culture Indicated? POC Troponin I (0.02-0.08) 09/05/21 09/05/21 09/05/21 Range/Units 13:05 13:08 13:30 WBC (4.5-11.0) K/mcL RBC (3.59-5.38) M/mcL Hgb (11.2-15.7) g/dL Hct (34.1-44.9) % POC Hct 31.0 L (36-48) MCV (80.0-100.0) fL MCH (26.0-34.0) pg MCHC (31.0-36.0) g/dL RDW (11.5-14.5) % Plt Count (140-440) K/mcL MPV (7.4-10.4) fL Neut % (Auto) (38.0-78.0) % Lymph % (Auto) (15.5-49.0) % [place] % (Auto) (1.0-12.0) % Eos % (Auto) (0.0-7.0) % Baso % (Auto) (0.0-2.0) % Lymph # (Auto) (1.50-4.80) K/mcL [place] # (Auto) (0.10-0.90) K/mcL Eos # (Auto) (0.00-0.70) K/mcL Baso # (Auto) (0.00-0.30) K/mcL Absolute Neutrophils (1.80-8.00) K/mcL VBG Lactic Acid (0.5-2.0) mmol/L POC Sodium 139 (133-145) Sodium (133-145) mmol/L POC Potassium 3.2 L (3.3-5.1) Potassium (3.3-5.1) mmol/L POC Chloride 105 (96-108) Chloride (96-108) mmol/L Carbon Dioxide (22-30) mmol/L POC Total CO2 23.0 (22-30) Anion Gap (8.0-16.0) POC BUN 15 (6-20) BUN (6-20) mg/dL Creatinine (0.6-1.1) mg/dL POC Creatinine 0.7 (0.6-1.2) GFR Calculation Glucose (70-105) mg/dL POC Glucose 100 (70-105) Calcium (8.6-10.4) mg/dL POC WB Ioniz Calcium 1.06 L (1.16-1.32) Total Bilirubin (0.1-1.0) mg/dL AST (<32) U/L ALT (<40) U/L Alkaline Phosphatase (39-117) U/L Total Protein (5.9-8.4) gm/dL Albumin (3.2-5.2) gm/dL Globulin (2.2-3.7) gm/dL Albumin/Globulin Ratio (1.0-2.3) Random Cortisol ug/dL Urine Color Yellow Urine Appearance Cloudy A (Clear) Urine pH 5.0 (5.0-9.0) Ur Specific [place] 1.019 (1.000-1.035) Urine Protein Negative (Negative) mg/dL Urine Glucose (UA) Negative (Negative) mg/dL Urine Ketones Negative (Negative) mg/dL Urine Occult Blood >=1.0 A (Negative) mg/dL Urine Nitrate Negative (Negative) Urine Bilirubin Negative (Negative) mg/dL Urine Urobilinogen Negative mg/dL Ur Leukocyte Esterase 25 A (Negative) /uL Urine RBC > 182 H (0-1) /hpf Urine WBC 15 H (0-4) /hpf Ur Squamous Epith Cells 4 (0-4) /hpf Ur Transition Epith Cell < 1 (0-2) /hpf Urine Bacteria Mod A (0) /hpf Hyaline Casts 7 H (0-2) /lph Urine Mucus Mod A (None) /hpf Ur Culture Indicated? yes POC Troponin I 0 L (0.02-0.08) 09/05/21 Range/Units 16:01 WBC (4.5-11.0) K/mcL RBC (3.59-5.38) M/mcL Hgb (11.2-15.7) g/dL Hct (34.1-44.9) % POC Hct (36-48) MCV (80.0-100.0) fL MCH (26.0-34.0) pg MCHC (31.0-36.0) g/dL RDW (11.5-14.5) % Plt Count (140-440) K/mcL MPV (7.4-10.4) fL Neut % (Auto) (38.0-78.0) % Lymph % (Auto) (15.5-49.0) % [place] % (Auto) (1.0-12.0) % Eos % (Auto) (0.0-7.0) % Baso % (Auto) (0.0-2.0) % Lymph # (Auto) (1.50-4.80) K/mcL [place] # (Auto) (0.10-0.90) K/mcL Eos # (Auto) (0.00-0.70) K/mcL Baso # (Auto) (0.00-0.30) K/mcL Absolute Neutrophils (1.80-8.00) K/mcL VBG Lactic Acid 1.8 (0.5-2.0) mmol/L POC Sodium (133-145) Sodium (133-145) mmol/L POC Potassium (3.3-5.1) Potassium (3.3-5.1) mmol/L POC Chloride (96-108) Chloride (96-108) mmol/L Carbon Dioxide (22-30) mmol/L POC Total CO2 (22-30) Anion Gap (8.0-16.0) POC BUN (6-20) BUN (6-20) mg/dL Creatinine (0.6-1.1) mg/dL POC Creatinine (0.6-1.2) GFR Calculation Glucose (70-105) mg/dL POC Glucose (70-105) Calcium (8.6-10.4) mg/dL POC WB Ioniz Calcium (1.16-1.32) Total Bilirubin (0.1-1.0) mg/dL AST (<32) U/L ALT (<40) U/L Alkaline Phosphatase (39-117) U/L Total Protein (5.9-8.4) gm/dL Albumin (3.2-5.2) gm/dL Globulin (2.2-3.7) gm/dL Albumin/Globulin Ratio (1.0-2.3) Random Cortisol ug/dL Urine Color Urine Appearance (Clear) Urine pH (5.0-9.0) Ur Specific [place] (1.000-1.035) Urine Protein (Negative) mg/dL Urine Glucose (UA) (Negative) mg/dL Urine Ketones (Negative) mg/dL Urine Occult Blood (Negative) mg/dL Urine Nitrate (Negative) Urine Bilirubin (Negative) mg/dL Urine Urobilinogen mg/dL Ur Leukocyte Esterase (Negative) /uL Urine RBC (0-1) /hpf Urine WBC (0-4) /hpf Ur Squamous Epith Cells (0-4) /hpf Ur Transition Epith Cell (0-2) /hpf Urine Bacteria (0) /hpf Hyaline Casts (0-2) /lph Urine Mucus (None) /hpf Ur Culture Indicated? POC Troponin I (0.02-0.08) ED POC Tests ED POC Tests: JAMES - Influenza A Negative JAMES - Influenza B Negative JAMES - SARS Antigen Negative EKG Data EKG #1: EKG attestation: Yes I reviewed and interpreted this EKG. EKG results narrative: Sinus rhythm at a rate of 109. Left axis. QTC 453. High lateral T wave f lattening. Poor R wave progression. Borderline but nonacute EKG CC TIME Critical Care Time Critical Care Time: Yes Attestation: Approximately 30 minutes of critical care time was used in order to assess and manage the high probability of imminent or life threatening deterioration to addisonian crisis, sepsis, pneumonia which required my highest level of preparedness and interventions with frequent patient assessments. This time is excluding time spent on separately billable procedures. Discharge Plan Patient/Caregiver Discharge Instructions Pt seen by PRINCIPAL BIOINFORMATICS SPECIALIST/PA only: No Clinical Impression: Sepsis, Pneumonia, Addisonian crisis, Vertigo Patient Disposition: Xfer As Inpt ([facility]) Discharge Date/Time: 09/05/21 16:21
[2021-09-05] MEDS ORDERED: KETOROLAC 30 MG/ML VIAL IV PRN (19:47)
[2021-09-05] MEDS: 0.9 % SODIUM CHLORIDE 10 ML SYRINGE IV SCH (20:59)
[2021-09-05] MEDS: DOCUSATE SODIUM 100 MG CAPSULE PO SCH (20:59)
[2021-09-05] MEDS: SENNOSIDES 1 TABLET PO SCH (20:59)
[2021-09-05] MEDS: HYDROcodone/APAP 10/325MG TABLET PO PRN (21:07)
[2021-09-06] MEDS: 0.9 % SODIUM CHLORIDE 10 ML SYRINGE IV SCH ×3 (04:42→22:37)
[2021-09-06] MEDS: HYDROcodone/APAP 10/325MG TABLET PO PRN ×4 (05:49→21:38)
[2021-09-06 06:24] LABS: Basophils # (Auto) 0.05 K/mcL (0.00-0.30); Basophils % (Auto) 0.2 % (0.0-2.0); Eosinophils % (Auto) 0.5 % (0.0-7.0); Hematocrit 30.8 % (34.1-44.9); Hemoglobin 9.1 g/dL (11.2-15.7); Lymphocytes # (Auto) 2.16 K/mcL (1.50-4.80); Lymphocytes % (Auto) 10.5 % (15.5-49.0); Mean Cell Volume 77.6 fL (80.0-100.0); Mean Corpuscular HGB Conc 29.5 g/dL (31.0-36.0); Mean Platelet Volume 8.9 fL (7.4-10.4); Monocytes # (Auto) 1.34 K/mcL (0.10-0.90); Monocytes % (Auto) 6.5 % (1.0-12.0); Neutrophils % (Auto) 82.3 % (38.0-78.0); Platelet Count 295 K/mcL (140-440); RBC 3.97 M/mcL (3.59-5.38); Red Cell Distribution Width 20.3 % (11.5-14.5); WBC 20.6 K/mcL (4.5-11.0)
[2021-09-06 06:49] LABS: Blood Urea Nitrogen 20 mg/dL (6-20); Calcium 7.8 mg/dL (8.6-10.4); Carbon Dioxide 23 mmol/L (22-30); Chloride 106 mmol/L (96-108); Glomerular Filtration Rate 94; Glucose 97 mg/dL (70-105)
[2021-09-06] MEDS: DOCUSATE SODIUM 100 MG CAPSULE PO SCH ×2 (08:02→21:37)
[2021-09-06] MEDS: ENOXAPARIN 40 MG/0.4 ML SYRINGE SQ SCH (08:02)
[2021-09-06] MEDS ORDERED: OMEPRAZOLE 20 MG CAPSULE PO PRN (08:05)
--- NOTE | 2021-09-06 09:11 | Internal Med Progress Note ---
SUBJECTIVE Subjective Patient information: Note initiated : 09/06/21 at 9:09 am Service Date, if different from initiated Date: [] Patient: Fiona De Luna 60 y/o F admitted on 09/05/21 for dizziness. Chief Complaint: [Generalized weakness, fevers] Principal diagnosis: Sepsis Interval history: The patient presented to the hospital with fevers, malaise and altered sensorium. There was a component of polypharmacy adding to her confusion and weakness. She was treated for a left lower lobe pneumonia. She is doing much better this morning. She does have pain seeking behavior. She continues to complain of nonspecific abdominal pain and I reassured her that her CT findings did not reveal intra-abdominal or intrapelvic pathology. She will only continue her home [place]. We discussed disposition and she was in agreement. Constitutional Vitals: Vital Signs Temp Pulse Resp BP Pulse Ox 97.0 F 66 18 95/55 90 09/06/21 08:00 09/06/21 08:00 09/06/21 08:00 09/06/21 08:00 09/06/21 08:00 Period Temp Pulse Resp BP Sys/White Pulse Ox Last 24 Hr 96.6 F-103.2 F 65-124 14-19 94-117/53-72 90-93 Intake and Output 09/05/21 09/06/21 09/06/21 21:59 05:59 13:59 Intake Total 1250 120 Output Total 350 Balance 1250 -230 Weight 128.684 kg Intake & Output: Intake & Output 09/05/21 09/06/21 09/06/21 21:59 05:59 13:59 Intake Total 1250 120 Output Total 350 Balance 1250 -230 Weight 128.684 kg Intake: IV 1250 Sodium Chloride 0.9% 1,000 ml @ 1000 Wide Open IV .Q0M ONE Rx#: [id number] Zithromax 500 mg In Dextrose 5% 250 in Water 250 ml @ 250 mls/hr IV Q24H [facility] Rx#:[id number] Oral 120 Output: Void Amount 350 Other: Urine Appearance Clear Urine Color Dark Yellow Urine Odor Strong # Voids 1 Head Head exam: Present atraumatic and normal inspection Eye Eye exam: Present normal appearance ENT ENT exam: Present mucous membranes moist, normal exam and normal external ear exam Neck Neck exam: Present normal inspection Respiratory Respiratory exam: Present normal respiratory exam Cardiovascular Cardiovascular exam: Present normal rate and rhythm GI/Abdominal GI/Abdominal exam: Present normal bowel sounds Back Exam Back exam: Present normal inspection Neurological Exam Neurological exam: Present alert and oriented X3 Skin Skin exam: Present intact and warm OBJ DATA Labs CBC & Chem 7: 09/06/21 05:38 09/06/21 05:38 Labs: Abnormal Lab Results 09/06/21 09/06/21 09/05/21 05:38 05:38 13:30 WBC 20.6 H Hgb 9.1 L Hct 30.8 L POC Hct MCV 77.6 L MCH 22.9 L MCHC 29.5 L RDW 20.3 H Neut % (Auto) 82.3 H Lymph % (Auto) 10.5 L Lymph # (Auto) [place] # (Auto) 1.34 H Absolute Neutrophils 16.92 H VBG Lactic Acid POC Potassium Potassium 3.1 L Calcium 7.8 L POC WB Ioniz Calcium Albumin Albumin/Globulin Ratio Urine Appearance Cloudy A Urine Occult Blood >=1.0 A Ur Leukocyte Esterase 25 A Urine RBC > 182 H Urine WBC 15 H Urine Bacteria Mod A Hyaline Casts 7 H Urine Mucus Mod A POC Troponin I 09/05/21 09/05/21 09/05/21 13:08 13:05 12:23 WBC Hgb Hct POC Hct 31.0 L MCV MCH MCHC RDW Neut % (Auto) Lymph % (Auto) Lymph # (Auto) Band[place] # (Auto) Absolute Neutrophils VBG Lactic Acid 2.4 H POC Potassium 3.2 L Potassium 3.1 L Calcium 8.0 L POC WB Ioniz Calcium 1.06 L Albumin 2.9 L Albumin/Globulin Ratio 0.9 L Urine Appearance Urine Occult Blood Ur Leukocyte Esterase Urine RBC Urine WBC Urine Bacteria Hyaline Casts Urine Mucus POC Troponin I 0 L 09/05/21 12:23 WBC 19.4 H Hgb 10.1 L Hct 33.6 L POC Hct MCV 76.7 L MCH 23.1 L MCHC 30.1 L RDW 20.0 H Neut % (Auto) 88.6 H Lymph % (Auto) 4.2 L Lymph # (Auto) 0.81 L Band[place] # (Auto) 1.26 H Absolute Neutrophils 17.19 H VBG Lactic Acid POC Potassium Potassium Calcium POC WB Ioniz Calcium Albumin Albumin/Globulin Ratio Urine Appearance Urine Occult Blood Ur Leukocyte Esterase Urine RBC Urine WBC Urine Bacteria Hyaline Casts Urine Mucus POC Troponin I Meds: Medications Acetaminophen (Acetaminophen 325 Mg Tablet) 650 mg PO Q6HP PRN; Protocol PRN Reason: Per Pain Protocol/Fever > 101 Hydrocodone Bitart/Acetaminophen (Hydrocodone/Apap 10/325mg Tablet) 1 tab PO Q4HP PRN; Protocol PRN Reason: Per Pain Protocol Last Admin: 09/06/21 05:49 Dose: 1 tab Documented by: Ascorbic Acid (Ascorbic Acid 500 Mg Tablet) 1,000 mg PO QDAY [facility] Aspirin (Aspirin 81 Mg Tab.Chew) 81 mg PO DAILY [facility] Ceftriaxone Sodium (Ceftriaxone 1 Gm Vial) 1 gm IV Q24H [facility]; Protocol Docusate Sodium (Docusate Sodium 100 Mg Capsule) 100 mg PO BID [facility] Last Admin: 09/06/21 08:02 Dose: 100 mg Documented by: Duloxetine HCl (Duloxetine 30 Mg Capsule) 60 mg PO DAILY [facility] Enoxaparin Sodium (Enoxaparin 40 Mg/0.4 Ml Syringe) 40 mg SQ DAILY [facility] Last Admin: 09/06/21 08:02 Dose: 40 mg Documented by: Gabapentin (Gabapentin 300 Mg Capsule) 1,800 mg PO TID [facility] Hydrocortisone (Hydrocortisone 10 Mg Tablet) 25 mg PO BID [facility] Azithromycin 500 mg/ Dextrose 250 mls @ 250 mls/hr IV Q24H [facility]; Protocol Stop: 09/07/21 16:29 Last Infusion: 09/05/21 16:35 Dose: Infused Documented by: Iron Carb/Multivit/Cottle/Folic Acid (Multivit,Ther Iron,Ca,Fa & Min 1 Tablet) 1 tab PO DAILY [facility] Magnesium Oxide (Magnesium Oxide 400 Mg Tablet) 400 mg PO DAILY [facility] Mirtazapine (Mirtazapine 15 Mg Tablet) 15 mg PO QHS [facility] Nystatin (Nystatin Powder Bottle 15gm) 1 dose TOPICAL BIDP PRN PRN Reason: Rash Omeprazole (Omeprazole 20 Mg Capsule) 40 mg PO BIDAC PRN PRN Reason: Gastric Reflux Ondansetron HCl (Ondansetron 4 Mg/2 Ml Vial) 4 mg IV Q6HP PRN PRN Reason: Nausea And Vomiting Ropinirole HCl (Ropinirole 1 Mg Tablet) 1 mg PO QHS [facility] Senna (Sennosides 1 Tablet) 2 tab PO HS [facility] Last Admin: 09/05/21 20:59 Dose: 2 tab Documented by: Sertraline HCl (Sertraline 100 Mg Tablet) 100 mg PO QDAY [facility] Sodium Chloride (0.9 % Sodium Chloride 10 Ml Syringe) 10 ml IV Q8 [facility] Last Admin: 09/06/21 04:42 Dose: 10 ml Documented by: A/P Assessment and plan (1) Ochiltree disease: Status: Chronic (2) Lumbar spinal stenosis: Status: Chronic (3) Chronic, continuous use of opioids: Status: Chronic (4) Sepsis: Status: Acute (5) CAP (community acquired pneumonia): Status: Acute Narrative A/P Narrative: The patient presents with a septic picture likely source being respiratory however intra-abdominal or intrapelvic pathology is yet to be ruled out. She will be covered with ceftriaxone and azithromycin. She will be aggressively treated with IV fluids. She does have a history of Ochiltree's disease and she was prescribed Solu-Cortef in the ER which will be continued. We will await CT abdomen pelvis, blood cultures, urine culture. We will hold any home antihypertensives. In the setting of sepsis and altered mental status, will also hold any sedatives from home. 09/06: The patient's white blood cell count is elevated at 20.6 however this is likely in the setting of Solu-Cortef as she does have Ochiltree's. Clinically speaking, she is doing much better. Her lactic acid has normalized from 2.4- 1.8. We will continue parenteral antibiotics for another 24 hours. She will likely be able to be discharged home tomorrow morning. Time Spent With Patient Time: Total time spent is greater than 50% in coordination of care (as documented) at patient's floor/unit and/or counseling patient: QUALITY Stroke Symptom Onset Unknown: No VTE Deep Vein Thrombosis/Pulmonary Embolism Present on Admission: No
[2021-09-06] MEDS: cefTRIAXone 1 GM VIAL IV SCH (10:57)
[2021-09-06] MEDS: ASPIRIN 81 MG TAB.CHEW PO SCH (11:01)
[2021-09-06] MEDS: HYDROCORTISONE 10 MG TABLET PO SCH ×2 (11:02→21:39)
[2021-09-06] MEDS: GABAPENTIN 300 MG CAPSULE PO SCH ×3 (11:03→21:34)
[2021-09-06] MEDS: DULoxetine 30 MG CAPSULE PO SCH (11:04)
[2021-09-06] MEDS: SERTRALINE 100 MG TABLET PO SCH (11:04)
[2021-09-06] MEDS: MAGNESIUM OXIDE 400 MG TABLET PO SCH (11:05)
[2021-09-06] MEDS: MULTIVIT,THER IRON,CA,FA & MIN 1 TABLET PO SCH (11:05)
[2021-09-06] MEDS: ASCORBIC ACID 500 MG TABLET PO SCH (11:05)
[2021-09-06] MEDS: AZITHROMYCIN 500 MG in DEXTROSE 5% IN WATER 250 ML IV SCH (11:07)
[2021-09-06] MEDS: NYSTATIN POWDER BOTTLE 15GM TOPICAL PRN ×2 (12:25→21:40)
[2021-09-06] MEDS ORDERED: POTASSIUM CHLORIDE 20 MEQ TABLET PO ONE (17:00)
[2021-09-06] MEDS ORDERED: MIRTAZAPINE 15 MG TABLET PO SCH (21:00)
[2021-09-06] MEDS ORDERED: rOPINIRole 1 MG TABLET PO SCH (21:00)
[2021-09-06] MEDS: SENNOSIDES 1 TABLET PO SCH (21:38)
[2021-09-07] MEDS: 0.9 % SODIUM CHLORIDE 10 ML SYRINGE IV SCH (04:00)
[2021-09-07] MEDS: HYDROcodone/APAP 10/325MG TABLET PO PRN ×2 (04:11→09:13)
[2021-09-07] MEDS: cefTRIAXone 1 GM VIAL IV SCH (07:38)
[2021-09-07] MEDS: HYDROCORTISONE 10 MG TABLET PO SCH (09:04)
[2021-09-07] MEDS: MULTIVIT,THER IRON,CA,FA & MIN 1 TABLET PO SCH (09:05)
[2021-09-07] MEDS: DOCUSATE SODIUM 100 MG CAPSULE PO SCH (09:05)
[2021-09-07] MEDS: SERTRALINE 100 MG TABLET PO SCH (09:05)
[2021-09-07] MEDS: ENOXAPARIN 40 MG/0.4 ML SYRINGE SQ SCH (09:05)
[2021-09-07] MEDS: MAGNESIUM OXIDE 400 MG TABLET PO SCH (09:05)
[2021-09-07] MEDS: ASCORBIC ACID 500 MG TABLET PO SCH (09:05)
[2021-09-07] MEDS: GABAPENTIN 300 MG CAPSULE PO SCH (09:05)
[2021-09-07] MEDS: ASPIRIN 81 MG TAB.CHEW PO SCH (09:15)
[2021-09-07] MEDS: DULoxetine 30 MG CAPSULE PO SCH (09:15)
--- NOTE | 2021-09-07 10:00 | Discharge Summary ---
Discharge Provider Provider Patient information: Note initiated : 09/07/21 at 9:58 am Service Date, if different from initiated Date: [] Patient: Fiona De Luna 60 y/o F admitted on 09/05/21 for dizziness. Chief Complaint: [] Date of admission: 09/05/21 16:22 Discharge date: 09/07/21 Primary care physician: Espinoza Odom MD Admitting clinician: Shauna Steel Attending physician on admission: Shauna Steel Consults: 09/05/21 Consult to Physician [CONS] Stat Comment: Consulting Provider: Shauna Steel Reason For Exam: Physician to Consult Attending physician on discharge: Shauna Steel Discharge Meds Discharge Medications Home Medications eptinezumab-jjmr 100 mg/mL intravenous solution (Vyepti) 100 mg IV .[id number] 09/23/20 [History Confirmed 09/05/21 Last Taken 10/27/20] sertraline 100 mg tablet 100 mg PO QDAY #90 tab 12/28/20 [Rx Confirmed 09/05/21 Last Taken 01/15/21] hydrocortisone 10 mg tablet 25 mg PO BID tab 02/10/21 [History Confirmed 09/05/21 Last Taken Unknown] ascorbic acid (vitamin C) 500 mg tablet 1,000 mg PO QDAY 05/05/21 [History Confirmed 09/05/21 Last Taken Unknown] magnesium 200 mg tablet 200 mg PO QDAY 05/05/21 [History Confirmed 09/05/21 Last Taken Unknown] ropinirole 1 mg tablet 1 mg PO QHS 05/05/21 [History Confirmed 09/05/21 Last Taken Unknown] docusate sodium 100 mg capsule 100 mg PO BID #60 cap 05/15/21 [Rx Confirmed 09/05/21 Last Taken Unknown] multivitamin with iron 1 tab PO QDAY 05/24/21 [History Confirmed 09/05/21 Last Taken Unknown] potassium chloride 20 mEq tablet,extended release 40 meq PO QAMCC tab 05/24/21 [History Confirmed 09/05/21 Last Taken Unknown] nystatin 100,000 unit/gram topical powder 1 applic TOPICAL BIDP PRN #60 g 06/20/21 [Rx Confirmed 09/05/21 Last Taken Unknown] duloxetine 60 mg capsule,delayed release 60 mg PO QDAY #90 cap 07/05/21 [Rx Confirmed 09/05/21 Last Taken Unknown] gabapentin 600 mg tablet 1,800 mg PO TID 07/12/21 [History Confirmed 09/05/21 Last Taken Unknown] mirtazapine 15 mg tablet 15 mg PO QHS #90 tab 07/14/21 [Rx Confirmed 09/05/21 Last Taken Unknown] aspirin 81 mg tablet,delayed release (Ecotrin Low Strength) 81 mg PO DAILY 08/03/21 [History Confirmed 09/05/21 Last Taken Unknown] ondansetron 4 mg disintegrating tablet 4 mg PO Q8H PRN #10 tab 08/03/21 [Rx Confirmed 09/05/21 Last Taken Unknown] hydrocodone 10 mg-acetaminophen 325 mg tablet 1 tab PO Q4HP PRN #168 tab 08/15/21 [Rx Confirmed 09/05/21 Last Taken Unknown] omeprazole 40 mg capsule,delayed release 40 mg PO BIDAC PRN 08/22/21 [History Confirmed 09/05/21 Last Taken Unknown] albuterol sulfate 90 mcg/actuation aerosol inhaler (Ventolin HFA) 2 puff INHALATION Q6H PRN #8.5 g 09/07/21 [Rx Last Taken Unknown] azithromycin 250 mg tablet (Zithromax) 250 mg PO QDAY 5 Days #5 tab 09/07/21 [Rx Last Taken Unknown] COURSE Hospital Course Hospital course: Ms. De Luna is a 60 year old F with a past medical history significant for hypertension, hyperlipidemia, COPD, Reydon's disease, lumbar spinal stenosis, and cervical CA who presents to the hospital with 48-hour history of lethargy. The patient states that she was with her kids on Saturday for Mother's Day when she began to feel as though she was "drunk."She cannot specifically describe her symptoms. She denied any productive cough, shortness of breath, but did have pelvic/abdominal discomfort. The following day on Saturday, she continued to feel inebriated. The daughter came over and suggested that she go to the ER for further management and evaluation. On presentation, she was hemodynamically stable however was found to be slightly hypotensive with a blood pressure of 99/55. Of note, she was also found to be febrile with a temp of 103.2. Her O2 sat was 92% on ambient air. The patient's labs were concerning for a white blood cell count of 19.4, lactic acid of 2.4. Chest x-ray was concerning for moderate pneumonia in the lower two thirds of the left lung. The hospital service was asked admit the patient for further management and evaluation of her sepsis. The patient was medically stabilized with IV ceftriaxone, Zithromax and IV aggressive fluid resuscitation with colloids. Her lactic acid normalized. 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 Her sedatives were held as there is concerns for polypharmacy at home. She is feeling much better. CT chest abdomen pelvis was concerning for a lobar pneumonia. She will complete a 7-day course of Zithromax. She is also been prescribed albuterol as needed as she was complaining of wheezing. She should follow-up with her primary care physician in 1 week's time. The patient was in agreement with the discharge plan. Discharge diagnosis: Sepsis, CAP Reason for admission: Weakness Time Spent with Patient Time attestation: Total time spent providing and/or coordinating discharge services: EXAM Constitutional Vitals: Temp Pulse Resp BP Pulse Ox 97.6 F 75 20 119/71 95 09/07/21 08:00 09/07/21 08:00 09/07/21 08:00 09/07/21 08:00 09/07/21 08:00 Discharge Data Data Completed and Pending Labs on day of discharge: Preliminary micro results at discharge 09/05/21 13:00 Blood Culture - Preliminary Blood 09/05/21 12:23 Blood Culture - Preliminary Blood 09/05/21 13:30 Urine Culture - Preliminary Urine - Random Discharge Plan Patient/Caregiver Discharge Instructions Activity: as instructed Diet: Regular Diet Prescriptions: New azithromycin [Zithromax] 250 mg tablet 250 mg PO QDAY 5 Days Qty: 5 0RF albuterol sulfate [Ventolin HFA] 90 mcg/actuation HFA aerosol inhaler 2 puff inhalation Q6H PRN (Reason: shortness of breath or wheezing) Qty: 8.5 0RF Continued nystatin 100,000 unit/gram powder 1 applic topical BIDP PRN (Reason: Rash) Qty: 60 1RF Rx Instructions: Powder to abdominal panus for skin integrity and alternates with Nystatin- Triamcinolone cream. duloxetine 60 mg capsule,delayed release(DR/EC) 60 mg PO QDAY Qty: 90 1RF mirtazapine 15 mg tablet 15 mg PO QHS Qty: 90 1RF ondansetron 4 mg tablet,disintegrating 4 mg PO Q8H PRN (Reason: nausea and vomiting) Qty: 10 0RF hydrocodone-acetaminophen 10-325 mg tablet 1 tab PO Q4HP PRN (Reason: pain) Qty: 168 0RF Rx Instructions: must last 28 days, for refill due 08/16/21 sertraline 100 mg tablet 100 mg PO QDAY Qty: 90 1RF multivitamin with iron Tablet 1 tab PO QDAY 0RF gabapentin 600 mg tablet 1,800 mg PO TID 0RF Vyepti 100 mg/mL Solution 100 mg IV .[id number] 0RF Rx Instructions: pt unsure when due hydrocortisone 10 mg tablet 25 mg PO BID 0RF Rx Instructions: 15 mg in morning and 10mg in afternoon omeprazole 40 mg capsule,delayed release(DR/EC) 40 mg PO BIDAC PRN (Reason: Gastric Reflux) 0RF ascorbic acid (vitamin C) 500 mg Tablet 1,000 mg PO QDAY 0RF ropinirole 1 mg Tablet 1 mg PO QHS 0RF Rx Instructions: administer 1-3 hours before bedtime magnesium 200 mg Tablet 200 mg PO QDAY 0RF docusate sodium 100 mg capsule 100 mg PO BID Qty: 60 0RF potassium chloride 20 mEq tablet extended release 40 meq PO QAMCC 0RF Rx Instructions: Start 04/03/21 evening. aspirin [Ecotrin Low Strength] 81 mg tablet,delayed release (DR/EC) 81 mg PO DAILY 0RF Follow Up Plan Follow up with: Espinoza Odom MD [Primary Care Provider] - Patient Disposition: Home, Self-Care Prognosis: Good I certify that the patient requires SNF services: No Overall status at discharge: patient is progressing back to baseline QUALITY VTE Deep Vein Thrombosis/Pulmonary Embolism Present on Admission: No
[2021-09-07] MEDS: AZITHROMYCIN 500 MG in DEXTROSE 5% IN WATER 250 ML IV SCH (10:34)
--- NOTE | 2021-09-08 11:29 | EKG ---
[facility] Test Date: 2021-09-05 Pat Name: Fiona De Luna Department: ED Room: Gender: Female [employer]: SB : [id number] Requested By: Elieser Trevino Order Number: [id number] Reading MD: Rupinder Perez D.O. Measurements Intervals [place] Rate: 109 P: 37 WV: 151 QRS: -34 QRSD: 86 T: 62 QT: 336 QTc: 453 Interpretive Statements Sinus tachycardia Left axis deviation Nonspecific T wave changes Electronically Signed On 09-08-2021 11:29:07 PDT by Rupinder Perez D.O. /[id number]
== END 2021-09-07 12:05 | disposition home or self-care (01) | DRG 871 ==
LOC: ED 11:13 → MEDSUR 16:21
PROVIDERS: ADMIT Student in an Organized Health Care Education/Training Program; ATTEND Student in an Organized Health Care Education/Training Program